=== PATIENT | female | born 1950 | race Caucasian/White ===

== ENCOUNTER → 2019-02-26 | Outpatient (CLI) | payer MEDICARE, SELFPAY | PROVIDERS: Family Provider Electrodiagnostic Medicine; PCP Electrodiagnostic Medicine; Visit Provider Electrodiagnostic Medicine | DX: M79.661 Pain in right lower leg (principal); M79.89 Other specified soft tissue disorders | CPT/HCPCS: 93971 ==

== ENCOUNTER 2019-04-06 07:08 | Outpatient (CLI) | payer MEDICARE, SELFPAY ==
--- NOTE | 2019-04-06 07:14 | USCV_ITS ---
Mary Taylor Age: 68 Gender: F : 1950 Exam Date: 04/06/2019 07:06 Ordering Phys: Vinicio Melissa DO Technologist: [place] [facility] [place]ication: CLAUDICATION, RIGHT LEG PAIN, BILATERAL EDEMA RIGHT LEFT Brachial 173.00 mmHg Brachial 176.00 mmHg Pressure (mmHg) Waveform Pressure (mmHg) Waveform 213.00 PULP AND PAPER TESTER 219.00 214.00 DPA 197.00 1.22 Ankle/Brachial Index 1.24 153.00 Pre-Exercise Toe Pressure 142.00 0.87 Pre-Exercise Toe/Brachial Index 0.81 FINDINGS Normal resting ABIs bilaterally Normal resting TBIs bilaterally CONCLUSIONS No significant arterial obstruction, based on the above findings Dr Zeynep Dickey MD FAC (Electronically Signed) Final Date: 09 April 2019 14:08 S
== END 2019-04-06 07:09 | disposition home or self-care (01) ==
LOC: US 07:12
PROVIDERS: Family Provider Electrodiagnostic Medicine; PCP Electrodiagnostic Medicine; Visit Provider Electrodiagnostic Medicine
DX: I73.9 Peripheral vascular disease, unspecified (principal); M79.604 Pain in right leg; R60.0 Localized edema
CPT/HCPCS: 93922

== ENCOUNTER → 2019-10-13 11:29 | Outpatient (BNVA) | payer MEDICARE, SELFPAY | PROVIDERS: Family Provider Electrodiagnostic Medicine; PCP Electrodiagnostic Medicine; Visit Provider Nurse Practitioner | DX: N93.9 Abnormal uterine and vaginal bleeding, unspecified (principal); B37.9 Candidiasis, unspecified; K64.9 Unspecified hemorrhoids; Z68.43 Body mass index [BMI] 50.0-59.9, adult; Z71.89 Other specified counseling | CPT/HCPCS: 81000 ==

== ENCOUNTER 2020-04-04 08:34 | Outpatient (CLI) | payer MEDICARE, SELFPAY ==
--- NOTE | 2020-04-04 08:39 | MM_ITS ---
WS: [id number] BILATERAL DIGITAL SCREENING MAMMOGRAPHY WITH CAD CLINICAL INFORMATION: SCREENING HISTORY: Screening mammogram. No current complaints. COMPARISON: TECHNIQUE: Bilateral CC and MLO views. FINDINGS: Scattered fibroglandular densities bilaterally. Punctate calcifications right breast. Vascular calcif ication. Clustered calcifications left mid breast appear new since 2018. Recommend spot compression m agnification views for further evaluation. Right breast is unremarkable. MM/[place] [id number] IMPRESSION: BI-RADS: 0-Incomplete: Need additional imaging evaluation FOLLOW UP: Need Additional Imaging Recommend spot compression magnification views of the clustered calcifications LEFT breast
== END 2020-04-04 08:35 | disposition home or self-care (01) ==
LOC: RADSHAW 08:36
PROVIDERS: PCP Nurse Practitioner Family; Visit Provider Nurse Practitioner Family
DX: Z12.31 Encounter for screening mammogram for malignant neoplasm of breast (principal); R92.1 Mammographic calcification found on diagnostic imaging of breast
CPT/HCPCS: 77067

== ENCOUNTER 2020-04-24 12:39 | Outpatient (CLI) | payer MEDICARE, SELFPAY ==
--- NOTE | 2020-04-24 13:03 | MM_ITS ---
WS: [id number] LEFT DIGITAL MAMMOGRAPHY WITH CAD CLINICAL INFORMATION: ABNORMAL MAMMO LT COMPARISON: April 04, 2020 TECHNIQUE: 4 views of the left breast were obtained. FINDINGS: Scattered fibroglandular densities of the left breast. Again seen are the clustered calcifications mi d left breast new since 2018. Spot magnification views demonstrate amorphous heterogeneous clustered calcifications. These are inde terminate and recommend stereotactic guided biopsy in further evaluation. MM/[place] [id number] IMPRESSION: BI-RADS: 4-Suspicious Finding-Biopsy Should Be Considered FOLLOW UP: Stereotactic Biopsy Recommended
== END 2020-04-24 12:40 | disposition home or self-care (01) ==
LOC: RADSHAW 12:40
PROVIDERS: PCP Nurse Practitioner Family; Visit Provider Nurse Practitioner Family
DX: R92.8 Other abnormal and inconclusive findings on diagnostic imaging of breast (principal); R92.1 Mammographic calcification found on diagnostic imaging of breast
CPT/HCPCS: 77065

== ENCOUNTER 2020-12-17 11:42 | Emergency (ER) | payer MEDICARE, SELFPAY ==
[2020-12-17 11:53] VITALS: BP 192/107; PULSE 76; RESP 20; TEMP 36.6; O2SAT 98; BMI 51.6
--- NOTE | 2020-12-17 11:54 | US_ITS ---
NOTE: Report was unsigned for reason: Order was edited. Original Signature date and time was: 12/17/20 @ 1318 WS: [id number] ULTRASOUND RENAL TECHNIQUE: Ultrasound examination of both kidneys. CLINICAL INFORMATION: eval for bladder cancer COMPARISON: None. FINDINGS: Technically difficult examination due to body habitus RIGHT: Right kidney is normal in size and appearance. Echogenicity: Normal. Cortical thickness: 1.9 cm; Normal. Hydronephrosis: None. Perinephric fluid: None. Right kidney measures: 9.7 cm x 6.5 cm x 5.6 cm. LEFT: Left kidney is normal in size and appearance. Echogenicity: Normal. Cortical thickness: 1.8 cm; Normal. Hydronephrosis: None. Perinephric fluid: None. Left kidney measures: 10.3 cm x 5.5 cm x 5.7 cm. Normal visualized aorta. Echogenic debris within the bladder likely blood products considering hematuria [facility] US/US renal BI with PV bladder IMPRESSION: Technically difficult examination. 1. No hydronephrosis in either kidney. 2. Echogenic debris within the bladder likely blood products. This can be foll owed up with cystoscopy to evaluate for neoplasia.
[2020-12-17 12:00] VITALS: BP 192/107; PULSE 76; RESP 20; TEMP 36.6; O2SAT 98
--- NOTE | 2020-12-17 12:30 | W.ED.GENADLT ---
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 Patient denies any passage of clots, any recent trauma or instrumentation, dysuria/polyuria. Denies any abdominal complaints, new vaginal discharge/bleeding, nausea/vomiting or any source of excessive bleeding, melena or hematochezia at this time. No complaints of chest pain shortness breath, palpitation or lightheadedness. Onset: earlier today Duration:twice Location:home Severity:mild Review of Systems Narrative: Constitutional: No fever, no chills. HEENT: No vision changes CV: No chest pain, no palpitations PULM: no cough, no dyspnea. GI: No abdominal pain, no N/V/D. : No dysuria, +hematuria x 2 MSKEL: No muscle pain SKIN: No new rashes, no lesions. NEURO: No headache, no focal weakness. HEME: No visible bruises PSYCH: Normal mood PFSH ED PFSH: Social History Smoking and tobacco status: never smoked Female Reproductive History: Date of last menstrual period: 05/22/20 Physical Exam Narrative: EXAM NARRATIVE: Head: Atraumatic Eyes: PERRL, conjunctiva without injection ENT: Mucous membrane moist NECK: Supple, ROM intact LUNGS: LCTAB, no crackles/rhonchi CV: RRR ABDOMEN: No focal TTP. NO guarding rebound, guarding, rigidity. No CVA tenderness to percussion. Neg [place]/Neg McBurney's point tenderness, no suprabupic tenderness to palpation. EXTREMITY: Normal ROM SKIN: No rash or erythema NEURO: Awake and alert, no focal motor deficits PSYCH: Normal mood and affect Course Vital Signs: Vital signs: Vital Signs Temperature 97.8 F 12/17/20 12:00 Pulse Rate 80 12/17/20 13:42 Respiratory Rate 20 H 12/17/20 12:00 Blood Pressure 155/79 12/17/20 13:42 Pulse Oximetry 96 12/17/20 13:42 MDM - General Adult MDM Narrative: Medical decision making narrative: 70-year-old female presents emergency room with 2 episodes of hematuria. No signs of trauma or injuries. Kidney appears to be stable today. Creatinine within normal limit. Patient on UA showed mild hematuria. Today, patient is noted to have an INR level greater than 5. Patient tells me that the next few days where she will undergo biopsy in [place] and will be off of the warfarin for the next 5 days. Patient has a primary care provider who can adjust therapeutic goal for INR. Patient declined to be seen by our PCP today. US findings of bladder lesions discussed extensively with patient. Patient received a copy of the US report with the documented findings. Patient is instructed to follow up urgently with a Urologist. I offered patient our urologist here, patient declined, stating that she wants to be seen by urologist at [facility]. Again i have reiterated the importance of following up with a specialist for further evaluation of these lesions. Disposition: Discharge. Patient counseled regarding diagnostic impression, treatment plan. Patient given ED strict return precautions to return for continuation, worsening, or development of new symptoms. Instructed to f/u w/ PCP regarding symptoms today. Patient verbalized understanding. Lab Data: Labs: Lab Results 12/17/20 12/17/20 12/17/20 12:17 12:32 12:32 WBC 6.0 10^3/uL 10^3/ uL (4.0-10.0) RBC 4.52 10^6/uL 10^6 /uL (4.1-5.3) Hgb 13.1 g/dL g/dL (11.5-15.3) Hct 41.6 % % (37.0-47.0) MCV 92.0 fl fl (81-99) MCH 29.0 pg pg (28.0-34.0) MCHC 31.5 g/dL g/dL (30.0-36.0) RDW 13.5 % % (12.1-15.1) Plt Count 190 10^3/cmm 10^3 /cmm (130-400) MPV 9.9 fL fL (7.4-10.4) Neut % (Auto) 66.6 % % Lymph % (Auto) 23.4 % % [place] % (Auto) 6.9 % % Eos % (Auto) 2.2 % % Baso % (Auto) 0.7 % % Neut # (Auto) 3.99 10^3/uL 10^3 /uL (1.8-7.7) Lymph # (Auto) 1.4 10^3/uL 10^3/ uL (0.8-4.8) [place] # (Auto) 0.4 10^3/uL 10^3/ uL (0.2-0.9) Eos # (Auto) 0.1 10^3/uL 10^3/ uL (0.0-0.8) Baso # (Auto) 0.0 10^3/uL 10^3/ uL (0.0-0.1) Nucleated RBC % (a uto) 0 % % Nucleated RBCs # 0.0 /100WBC /100W BC PT 52.80 SECONDS H S ECONDS (12.1-14.9) INR 5.81 H* (0.8-1.2) APTT 71.1 SECONDS H SE CONDS (23.9-36.7) Sodium Potassium Chloride Carbon Dioxide Anion Gap BUN Creatinine GFR Calculation Glucose Calculated Osmolal ity Calcium Urine Color Red (Yellow) Urine Appearance Cloudy (CLEAR) Urine pH 5 (5-7) Ur Specific Gravit y 1.005 (1.005-1.030) Urine Protein Neg (Negative) Urine Glucose (UA) 4+ H (Normal) Urine Ketones Negative (Negative) Urine Blood 3+ H (Negative) Urine Nitrate Negative (Negative) Urine Bilirubin Neg (Negative) Urine Urobilinogen Norm mg/dL mg/dL (Negative) Ur Leukocyte Hazel a[place] Negative (Negative) Urine RBC Too numerous to c nt /hpf H /hpf (0-2) Urine WBC Not Reportable Ur Squamous Epith Cells 15-25 /hpf H /hpf (0-5) Amorphous Sediment Not Reportable Urine Bacteria Trace /hpf /hpf (NONE) Urine Mucus 1+ /hpf /hpf 12/17/20 12:32 WBC RBC Hgb Hct MCV MCH MCHC RDW Plt Count MPV Neut % (Auto) Lymph % (Auto) [place] % (Auto) Eos % (Auto) Baso % (Auto) Neut # (Auto) Lymph # (Auto) [place] # (Auto) Eos # (Auto) Baso # (Auto) Nucleated RBC % (a uto) Nucleated RBCs # PT INR APTT Sodium 137 mmol/L mmol/L (136-145) Potassium 4.3 mmol/L mmol/L (3.5-5.1) Chloride 100 mmol/L mmol/L (98-107) Carbon Dioxide 25 mmol/L mmol/L (22-29) Anion Gap 16.3 (5-19) BUN 14 mg/dL mg/dL (8-23) Creatinine 1.1 mg/dL H mg/dL (0.5-0.9) GFR Calculation 49.1 mL/min L mL/ min (90-130) Glucose 176 mg/dL H mg/dL (65-115) Calculated Osmolal ity 289 mOsm/kg mOsm/ kg (285-295) Calcium 8.7 mg/dL mg/dL (8.5-10.5) Urine Color Urine Appearance Urine pH Ur Specific Gravit y Urine Protein Urine Glucose (UA) Urine Ketones Urine Blood Urine Nitrate Urine Bilirubin Urine Urobilinogen Ur Leukocyte Hazel ase Urine RBC Urine WBC Ur Squamous Epith Cells Amorphous Sediment Urine Bacteria Urine Mucus Imaging Data^: Other Imaging: Radiologist's impression: [employer] [id number] ReportSigned Patient: Dominic Taylor #: [id number]: 1950[facility]#:[id number]/Sex: 70 / FADM Date: 12/17/20Loc: ERRoom/Bed:Attending Dr: Ordering Provider/Ordering MD: Chon Lance MD Date of Service: 12/17/20 Procedure(s): US renal BI with PV bladder Accession Number(s): [id number] Report Number: [id number] WS: [id number] ULTRASOUND RENAL TECHNIQUE: Ultrasound examination of both kidneys. CLINICAL INFORMATION: eval for bladder cancer COMPARISON: None. FINDINGS: Technically difficult examination due to body habitus RIGHT: Right kidney is normal in size and appearance. Echogenicity: Normal. Cortical thickness: 1.9 cm; Normal. Hydronephrosis: None. Perinephric fluid: None. Right kidney measures: 9.7 cm x 6.5 cm x 5.6 cm. LEFT: Left kidney is normal in size and appearance. Echogenicity: Normal. Cortical thickness: 1.8 cm; Normal. Hydronephrosis: None. Perinephric fluid: None. Left kidney measures: 10.3 cm x 5.5 cm x 5.7 cm. Normal visualized aorta. Echogenic debris within the bladder likely blood products considering hematuria US/US renal BI with PV bladder IMPRESSION: Technically difficult examination. 1. No hydronephrosis in either kidney. 2. Echogenic debris within the bladder likely blood products. This can be followed up with cystoscopy to evaluate for neoplasia. Dictated By:Brandin Reynoso MDSigned By:Brandin Reynoso MDSigned Date/Time:12/17/201317DD/ 13 Discharge Plan Discharge Patient Disposition: Home Clinical Impression: Hematuria Condition: Stable Prescriptions: No Action Lantus U-100 Insulin 100 unit/mL solution 40 unit SUBCUT DAILY RF: 0 JARDIANNCE PO RF: 0 warfarin 5 mg tablet 5 mg PO DAILY RF: 0 levothyroxine 25 mcg capsule 25 mcg PO DAILY RF: 0 LASIX PO RF: 0 pantoprazole [Protonix] 40 mg tablet,delayed release (DR/EC) 40 mg PO BID RF: 0 nystatin-triamcinolone 100,000-0.1 unit/g-% cream 1 applic TOPICAL BID Qty: 60 RF: 0 hydrocortisone acetate 25 mg suppository 25 mg GA DAILY Qty: 12 RF: 0 fluconazole [Diflucan] 150 mg tablet 150 mg PO Q3D Qty: 3 RF: 0 Discharge Orders: Discharge ED (Routine); Ordered 12/17/20 Ordered By: Chon Lance Referrals: [place] RN, [employer] [Primary Care Provider] - Discharge Diet: Advance as tolerated Discharge Activity: Resume usual activity Patient Instructions: Hematuria - Female, Hematuria (ED) Activity Restrictions/Additional Instructions: Please follow up with your Urologist and your primary doctor. Here's the report below. [address] [id number] ReportSigned Patient: Dominic Taylor #: [id number]: 1950cct#:[id number]/Sex: 70 / FADM Date: 12/17/20Loc: ERRoom/Bed:Attending Dr: Ordering Provider/Ordering MD: Chon Lance MD Date of Service: 12/17/20 Procedure(s): US renal BI with PV bladder Accession Number(s): [id number] Report Number: [id number] WS: [id number] ULTRASOUND RENAL TECHNIQUE: Ultrasound examination of both kidneys. CLINICAL INFORMATION: eval for bladder cancer COMPARISON: None. FINDINGS: Technically difficult examination due to body habitus RIGHT: Right kidney is normal in size and appearance. Echogenicity: Normal. Cortical thickness: 1.9 cm; Normal. Hydronephrosis: None. Perinephric fluid: None. Right kidney measures: 9.7 cm x 6.5 cm x 5.6 cm. LEFT: Left kidney is normal in size and appearance. Echogenicity: Normal. Cortical thickness: 1.8 cm; Normal. Hydronephrosis: None. Perinephric fluid: None. Left kidney measures: 10.3 cm x 5.5 cm x 5.7 cm. Normal visualized aorta. Echogenic debris within the bladder likely blood products considering hematuria US/US renal BI with PV bladder IMPRESSION: Technically difficult examination. 1. No hydronephrosis in either kidney. 2. Echogenic debris within the bladder likely blood products. This can be followed up with cystoscopy to evaluate for neoplasia. Dictated By:Brandin Reynoso MDSigned By:Brandin Reynoso MDSigned Date/Time:12/17/20 1318DD/ 1314 Coding Level of Care Code ED [employer] for Bernadette Santiago
[2020-12-17 12:57] LABS: Specific Gravity, Urine 1.005 (1.005-1.030); Urine Appearance Cloudy (CLEAR); Urine Color Red (Yellow); pH Urine 5 (5-7)
[2020-12-17 12:58] LABS: Add Urine Microscopic? YES; Bacteria Urine TRACE /hpf; Bilirubin Urine Neg (Negative); Blood Urine 3+ (Negative); Glucose Urine UA 4+ (Normal); Ketones Urine Negative (Negative); Leukocyte Esterase Urine Negative (Negative); Nitrate Urine Negative (Negative); Protein Urine Neg (Negative); RBC Urine TOO NUMEROUS TO CNT /hpf (0-2); Squamous Epithelial Cell Urine 15-25 /hpf (0-5); Urobilinogen Urine Norm (Negative)
[2020-12-17 12:59] LABS: Basophils % 0.7 %; Eosinophils # 0.1 10^3/uL (0.0-0.8); Eosinophils % 2.2 %; Hematocrit 41.6 % (37.0-47.0); Hemoglobin 13.1 g/dL (11.5-15.3); Lymphocytes # 1.4 10^3/uL (0.8-4.8); Lymphocytes % 23.4 %; Mean Corpuscular HGB Conc 31.5 g/dL (30.0-36.0); Mean Platelet Volume 9.9 fL (7.4-10.4); Monocytes # 0.4 10^3/uL (0.2-0.9); Monocytes % 6.9 %; Neutrophils # 3.99 10^3/uL (1.8-7.7); Neutrophils % 66.6 %; Nucleated Red Blood Cells % 0 %; Platelet Count 190 10^3/cmm (130-400); Red Blood Count 4.52 10^6/uL (4.1-5.3); Red Cell Distribution Width 13.5 % (12.1-15.1)
[2020-12-17 12:59] LABS: Add Urine Culture? No; Mucus Urine 1+ /hpf
[2020-12-17 13:06] VITALS: BP 169/86; PULSE 65; O2SAT 96
[2020-12-17 13:13] LABS: Anion Gap 16.3 (5-19); Blood Urea Nitrogen 14 mg/dL (8-23); Calcium 8.7 mg/dL (8.5-10.5); Carbon Dioxide 25 mmol/L (22-29); Chloride 100 mmol/L (98-107); Glomerular Filtration Rate 49.1 mL/min (90-130); Glucose 176 mg/dL (65-115); Osmolality Calculated 289 mOsm/kg (285-295); Potassium 4.3 mmol/L (3.5-5.1); Sodium 137 mmol/L (136-145)
[2020-12-17 13:14] LABS: Partial Thromboplastin Time 71.1 SECONDS (23.9-36.7)
[2020-12-17 13:21] LABS: INR 5.81 (0.8-1.2)
[2020-12-17 13:42] VITALS: BP 155/79; PULSE 80; O2SAT 96
--- NOTE | 2020-12-19 09:41 | DCPLANNER ---
regional environmental manager had message to schedule a follow up appointment for patient with Dr. Gonzalez. regional environmental manager called the office of Dr. Gonzalez, spoke with Tia, gave clinic patients information. regional environmental manager was told that patients information would be printed and reviewed. Clinic will call patient with appointment information.
--- NOTE | 2021-01-08 09:55 | DCPLANNER ---
Patient had a follow up appointment scheduled for 12.24.[address] Gonzalez - patient did attend appointment.
== END 2020-12-17 13:40 | disposition home or self-care (01) ==
PROVIDERS: Emergency Provider Emergency Medicine; PCP Nurse Practitioner Family
DX: R31.9 Hematuria, unspecified (principal); Z79.4 Long term (current) use of insulin
CPT/HCPCS: 36415; 76770; 76857; 80048; 81001; 85025; 85610; 85730; 99282

== ENCOUNTER 2020-12-19 08:56 | Emergency (ER) | payer MEDICARE, SELFPAY ==
[2020-12-19 09:13] VITALS: BP 169/82; PULSE 70; RESP 18; TEMP 36.5; O2SAT 95; BMI 51.6
--- NOTE | 2020-12-19 09:36 | CT_ITS ---
WS: [id number] CT ABDOMEN PELVIS TECHNIQUE: Noncontrast CT of the abdomen and pelvis with coronal and sagittal reformatted images. CLINICAL INFORMATION: right flank pain and blood in urine COMPARISON: None. DLP: 1784.[address] scans at [facility] use at least one of these dose optimization techniques: automated e xposure control; mA and/or kV adjustment per patient size (includes targeted exams where dose is matc hed to clinical indication); or iterative reconstruction. FINDINGS: Increased attenuation within the right renal pelvis likely blood products. Mild right pelvocaliectasi s. Right ureter is decompressed. No obstructing right ureteral calculi. No obstructing left renal or ureteral calculi. No hydronephrosis in the left kidney. Tiny increased attenuation right upper pole r enal lesion measuring 6 mm likely hemorrhagic cyst. Large low-attenuation ovarian cystic appearing lesion measuring 8.3 x 7.9 CM. Differential considerat ions include incidental ovarian cyst versus mucinous or cystic neoplasm. Noncontrast liver is normal. Normal GE junction. Food products in the stomach. Fatty atrophy of the p ancreas. Induration in the central mesentery with a few prominent lymph nodes consistent with herlinda mesentery . Adrenal glands are normal. Noncontrast spleen is normal. Normal caliber abdominal aorta. Aortic calci fication. The vacuum disc phenomenon L4-L5 and L5-S1. Small subpleural nodule left lower lobe measuring [address]/CT kidney stone [id number] IMPRESSION: 1. Increased attenuation material within the right renal pelvis with mild righ t pelvocaliectasis likely due to blood products. Recommend further evaluation w ith ureteroscopy to evaluate for underlying neoplasm. 2. Large right adnexal low-attenuation cystic-appearing lesion measuring 8.3 x 7.9 cm nonspecific in a patient this age. This may represent ovarian cyst vers us cystic neoplasm. Recommend follow-up outpatient pelvic ultrasound and [employer] co nsultation for further evaluation. 3. Slight induration with a few prominent lymph nodes in the central mesentery consistent with Herlinda mesentery. This can be seen with inflammatory mesenter itis and has been associated with lymphoma. Recommend [address] abdomen pelvis follow-up. 4. Small subpleural nodule left lower lobe measuring 6 mm. Recommend [address] follow-up. Notified MARINE Foster at 12/19/2020 11:10 AM.
--- NOTE | 2020-12-19 09:37 | ED_ITS ---
HPI - Female Genitourinary General: Chief complaint: Urogenital-Female Stated complaint: Blood in Urine Time Seen by Provider: 12/19/20 09:20 History of Present Illness: HPI Narrative: Patient is a 70-year-old female comes to the ED with right flank pain and blood in urine. Blood in urine is visible and it started December 17. She was seen here in the ED on December 17 and diagnosed with hematuria and her INR was elevated and she was instructed to stop taking her warfarin for the next couple days. Early this morning patient started developing severe right flank pain. She rates the pain currently a 10 out of 10. She also reports having some nausea since the intense pain started. Patient has no history of kidney stones. She denies any improving or worsening factors and says the pain is just constant since it started this morning. Denies any dysuria, fever, chills, abdominal pain, bowel symptoms. Patient is currently on warfarin, but has not taken it since December 17 per ED discharge instructions. Associated symptoms: Reports nausea; Deny abdominal pain or headache(s) Date of Last Menstrual Period: 05/22/20 Review of Systems Const: Denies: fever(s), chills or fatigue Eyes: Denies: change in vision or eye discomfort ENMT: Denies: throat pain, odynophagia, nasal discharge or nasal congestion Card: Denies: chest pain, palpitations, edema, swelling of feet/ankles, dyspnea on exertion or orthopnea Resp: Denies: dyspnea, productive cough or non-productive cough GI: Reports: nausea; Denies: abdominal pain, vomiting, diarrhea, constipation or hematochezia : Reports: flank pain (right side) and hematuria; Denies: dysuria Musc: Denies: neck pain, back pain or extremity swelling Skin/Breast: Denies: rash or new lesions Neuro: Denies: headache(s), numbness in extremities or weakness in extremities PFS ED PFSH: Social History Smoking and tobacco status: never smoked Female Reproductive History: Date of last menstrual period: 05/22/20 Physical Exam Const: COMMON NORMALS: no acute distress, patient oriented x3 and alert GENERAL APPEARANCE: cooperative; not comfortable (Patient appears uncomfortable and is bracing right flank with hand) HENMT: COMMON NORMALS: normocephalic HEAD & SCALP: normocephalic MOUTH: Normal oral and palatal mucosa present THROAT: posterior oropharynx normal and uvula midline Eye: COMMON NORMALS: Equal, round and reactive pupils present PUPIL: Yes Equal, round and reactive pupils present Neck/C-Spine: COMMON NORMALS: supple GENERAL: Yes normal visual inspection Resp: COMMON NORMALS: normal respiratory effort, No retractions, No use of accessory muscles and clear to auscultation bilaterally AUSCULTATION: clear to auscultation bilaterally Cardio: COMMON NORMALS: regular rate, regular rhythm, S1 normal heart sound present, S2 normal heart sound present, No gallops present (Cardio), No clicks present (Cardio), No murmurs present (Cardio) and Peripheral pulses 2+ throughout RATE: regular rate RHYTHM: regular rhythm HEART SOUNDS: S1 normal heart sound present and S2 normal heart sound present PERIPHERAL PULSES: Peripheral pulses 2+ throughout GI: COMMON NORMALS: Normal to inspection, nondistended, normoactive bowel sounds present, Soft to palpation, non-tender and no masses PALPATION: Yes Soft to palpation : BLADDER/KIDNEY EXAM: Yes CVA tenderness Back/Pelvis: GENERAL BACK: Yes CVA tenderness CVA tenderness: right Extremity: COMMON NORMALS: normal to inspection Neuro: COMMON NORMALS: patient oriented x3 and moves all extremities SENSORIUM/ORIENTATION: Yes alert Skin: GENERAL SKIN EXAM: dry skin Course Reevaluation(s): Reevaluation #1: Patient's nausea and right flank pain completely resolved on its own while she was in the ED room. She then refused getting any IV morphine or Zofran or fluids since she was feeling a lot better. Time: 12:06 Vital Signs: Vital signs: Vital Signs Temperature 97.7 F 12/19/20 09:13 Pulse Rate 70 12/19/20 09:13 Respiratory Rate 18 12/19/20 09:13 Blood Pressure 169/82 12/19/20 09:13 Pulse Oximetry 95 12/19/20 09:13 MDM - Female MDM Narrative: Medical decision making narrative: Patient is a 70-year-old female is coming to the ED with right flank pain. She was seen here in the ED 2 days ago on December 17 for hematuria. Vitals are stable. Patient has right CVA tenderness but the rest of exam is benign. She appears nontoxic and in no acute distress. Creatinine was 1.4 which is slightly elevated from previous creatinine level. INR was 4.16 which is improvement from 5.8 2 days ago. rest of labs are unremarkable. CT abdomen pelvis showed . Increased attenuation material within the right renal pelvis with mild right pelvocaliectasis likely due to blood products. Recommend further evaluation with ureteroscopy to evaluate for underlying neoplasm. 2. Large right adnexal low-attenuation cystic-appearing lesion measuring 8.3 x 7.9 cm nonspecific in a patient this age. This may represent ovarian cyst versus cystic neoplasm. Recommend follow-up outpatient pelvic ultrasound and CUSTOMER RELATIONS COORDINATOR consultation for further evaluation. 3. Slight induration with a few prominent lymph nodes in the central mesentery consistent with Herlinda mesentery. This can be seen with inflammatory mesenteritis and has been associated with lymphoma. Recommend [address] abdomen pelvis follow-up. 4. Small subpleural nodule left lower lobe measuring 6 mm. Recommend [address] follow-up. I placed an order with case management for patient to be referred to Dr. Gonzalez for further investigation of right pelvocaliectasis. I also placed a order with case management for patient to be referred to women's health specialist for larger ovarian cyst And she was also set up for an outpatient pelvic ultrasound. Patient also would like to get established with a PCP, so I placed an order with case management for patient to be referred to a PCP. I also sent patient home with an outpatient lab order for patient to have her INR checked on December 23. Patient was also told to have follow-up CT chest x-ray in about 6-month along with a CT abdomen pelvis in 6 months as well. Patient's right flank pain resolved on its own while patient was here in the ED. She refused any IV fluids, nausea meds or pain meds while here in the ED. Patient diagnosed with renal colic on right side and right ovarian cyst. Patient was told to continue holding her warfarin until December 22 and then to have her INR redrawn on the to evaluate if she can start taking her warfarin again. Return to ED precautions given. Patient understood and agreed with plan. Lab Data: Attestation: I reviewed the patient's lab results. Labs: Lab Results 12/19/20 12/19/20 12/19/20 09:57 09:57 09:57 WBC 5.8 10^3/uL 10^3/ uL (4.0-10.0) RBC 4.45 10^6/uL 10^6 /uL (4.1-5.3) Hgb 12.8 g/dL g/dL (11.5-15.3) Hct 40.3 % % (37.0-47.0) MCV 90.6 fl fl (81-99) MCH 28.8 pg pg (28.0-34.0) MCHC 31.8 g/dL g/dL (30.0-36.0) RDW 13.3 % % (12.1-15.1) Plt Count 198 10^3/cmm 10^3 /cmm (130-400) MPV 10.1 fL fL (7.4-10.4) Neut % (Auto) 66.1 % % Lymph % (Auto) 22.8 % % Phillips % (Auto) 6.4 % % Eos % (Auto) 3.5 % % Baso % (Auto) 1.0 % % Neut # (Auto) 3.82 10^3/uL 10^3 /uL (1.8-7.7) Lymph # (Auto) 1.3 10^3/uL 10^3/ uL (0.8-4.8) Phillips # (Auto) 0.4 10^3/uL 10^3/ uL (0.2-0.9) Eos # (Auto) 0.2 10^3/uL 10^3/ uL (0.0-0.8) Baso # (Auto) 0.1 10^3/uL 10^3/ uL (0.0-0.1) Nucleated RBC % (a uto) 0 % % Nucleated RBCs # 0.0 /100WBC /100W BC PT 40.70 SECONDS H S ECONDS (12.1-14.9) INR 4.16 H (0.8-1.2) Sodium 138 mmol/L mmol/L (136-145) Potassium 3.7 mmol/L mmol/L (3.5-5.1) Chloride 101 mmol/L mmol/L (98-107) Carbon Dioxide 25 mmol/L mmol/L (22-29) Anion Gap 15.7 (5-19) BUN 16 mg/dL mg/dL (8-23) Creatinine 1.4 mg/dL H mg/dL (0.5-0.9) GFR Calculation 37.2 mL/min L mL/ min (90-130) Glucose 132 mg/dL H mg/dL (65-115) Calculated Osmolal ity 289 mOsm/kg mOsm/ kg (285-295) Calcium 8.5 mg/dL mg/dL (8.5-10.5) Total Bilirubin 0.5 mg/dL mg/dL (0.15-1.2) AST 13 U/L U/L (0-32) ALT 11 U/L U/L (0-33) Alkaline Phosphata se 72 IU/L IU/L (35-105) Total Protein 7.4 g/dL g/dL (6.6-8.7) Albumin 4.0 g/dL g/dL (3.5-5.2) Globulin 3.4 g/dL g/dL (1.3-4.6) Lipase 12 U/L L U/L (13-60) Imaging Data: CT Abd/Pel: Attestation: I personally reviewed and interpreted this imaging study as follows: Radiologist's impression: [address] [address] [address] Scan Report Signed Patient: Mary Taylor Unit #: [id number] : 1950 Age/Sex: 70 / F ADM Date: 12/19/20 Loc: ER Room/Bed: Attending Dr: Ordering Provider/Ordering MD: Nic Gaxiola Date of Service: 12/19/20 Procedure(s): CT kidney stone 59485 Accession Number(s): [id number] Report Number: [id number] WS: [id number] CT ABDOMEN PELVIS TECHNIQUE: Noncontrast CT of the abdomen and pelvis with coronal and sagittal reformatted images. CLINICAL INFORMATION: right flank pain and blood in urine COMPARISON: None. DLP: 1784.[address] scans at [facility] use at least one of these dose optimization techniques: automated exposure control; mA and/or kV adjustment per patient size (includes targeted exams where dose is matched to clinical indication); or iterative reconstruction. FINDINGS: Increased attenuation within the right renal pelvis likely blood products. Mild right pelvocaliectasis. Right ureter is decompressed. No obstructing right ureteral calculi. No obstructing left renal or ureteral calculi. No hydronephrosis in the left kidney. Tiny increased attenuation right upper pole renal lesion measuring 6 mm likely hemorrhagic cyst. Large low-attenuation ovarian cystic appearing lesion measuring 8.3 x 7.9 CM. Differential considerations include incidental ovarian cyst versus mucinous or cystic neoplasm. Noncontrast liver is normal. Normal GE junction. Food products in the stomach. Fatty atrophy of the pancreas. Induration in the central mesentery with a few prominent lymph nodes consistent with herlinda mesentery . Adrenal glands are normal. Noncontrast spleen is normal. Normal caliber abdominal aorta. Aortic calcification. The vacuum disc phenomenon L4-L5 and L5-S1. Small subpleural nodule left lower lobe measuring [address]/CT kidney stone [id number] IMPRESSION: 1. Increased attenuation material within the right renal pelvis with mild right pelvocaliectasis likely due to blood products. Recommend further evaluation with ureteroscopy to evaluate for underlying neoplasm. 2. Large right adnexal low-attenuation cystic-appearing lesion measuring 8.3 x 7.9 cm nonspecific in a patient this age. This may represent ovarian cyst versus cystic neoplasm. Recommend follow-up outpatient pelvic ultrasound and CUSTOMER RELATIONS COORDINATOR consultation for further evaluation. 3. Slight induration with a few prominent lymph nodes in the central mesentery consistent with Herlinda mesentery. This can be seen with inflammatory mesenteritis and has been associated with lymphoma. Recommend [address] abdomen pelvis follow-up. 4. Small subpleural nodule left lower lobe measuring 6 mm. Recommend [address] follow-up. Notified MARINE Foster at 12/19/2020 11:10 AM. Dictated By: Brandin Reynoso MD Signed By: Brandin Reynoso MD Signed Date/Time: 12/19/20 1110 DD/ 1047 Discharge Plan Discharge Patient Disposition: Home Clinical Impression: Renal colic on right side, Ovarian cyst, right Hematuria Qualifiers: Hematuria type: unspecified type Qualified Code(s): R31.9 - Hematuria, unspecified Condition: Stable Prescriptions: No Action Lantus U-100 Insulin 100 unit/mL solution 40 unit SUBCUT DAILY RF: 0 JARDIANNCE PO RF: 0 warfarin 5 mg tablet 5 mg PO DAILY RF: 0 levothyroxine 25 mcg capsule 25 mcg PO DAILY RF: 0 LASIX PO RF: 0 pantoprazole [Protonix] 40 mg tablet,delayed release (DR/EC) 40 mg PO BID RF: 0 nystatin-triamcinolone 100,000-0.1 unit/g-% cream 1 applic TOPICAL BID Qty: 60 RF: 0 hydrocortisone acetate 25 mg suppository 25 mg IA DAILY Qty: 12 RF: 0 fluconazole [Diflucan] 150 mg tablet 150 mg PO Q3D Qty: 3 RF: 0 Discharge Orders: Discharge ED (Routine); Ordered 12/19/20 Ordered By: Nic Gaxiola Referrals: Galo Hill RN, CHAIN TENDER [Primary Care Provider] - Discharge Diet: Regular Discharge Activity: Increase activity as tolerated Patient Instructions: Ovarian Cyst (ED), Renal Colic (ED), Hematuria (ED), Opioid Safety Activity Restrictions/Additional Instructions: Follow-up with medical provider as directed. Case management will be contacting you to let you know of your appointments coming up with Dr. Gonzalez the urologist, women's health doctor and local primary care physician. I have an order for you to get an outpatient ultrasound of the pelvis to analyze the ovarian cyst. Continue holding on taking your warfarin for another 3 days as instructed previously. Have INR rechecked on December 23 per outpatient order. Just come here to the hospital and when you check in show them the outpatient order form. Take medications as prescribed. Return to the ER or your medical provider if condition worsens. Please read and understand discharge instructions. Below are the CT abdomen findings. 1. Increased attenuation material within the right renal pelvis with mild right pelvocaliectasis likely due to blood products. Recommend further evaluation with ureteroscopy to evaluate for underlying neoplasm. 2. Large right adnexal low-attenuation cystic-appearing lesion measuring 8.3 x 7.9 cm nonspecific in a patient this age. This may represent ovarian cyst versus cystic neoplasm. Recommend follow-up outpatient pelvic ultrasound and CUSTOMER RELATIONS COORDINATOR consultation for further evaluation. 3. Slight induration with a few prominent lymph nodes in the central mesentery consistent with Herlinda mesentery. This can be seen with inflammatory mesenteritis and has been associated with lymphoma. Recommend [address] abdomen pelvis follow-up. 4. Small subpleural nodule left lower lobe measuring 6 mm. Recommend [address] follow-up. Thank you for choosing [facility] for your healthcare needs today. Please realize this is an emergency room and that we are providing you with a medical screening exam and this may not be complete and all inclusive of all the testing and or work up that you may need to determine your ailment or severity of your illness. It is very important that you follow up as instructed or that you return to the Emergency Department should you have concerns or if your condition changes or worsens in any way. Coding Level of Care Code ED Rock Splitter for Bernadette Fwbritta Exam Comprehensive
[2020-12-19 10:08] LABS: Basophils # 0.1 10^3/uL (0.0-0.1); Eosinophils # 0.2 10^3/uL (0.0-0.8); Eosinophils % 3.5 %; Hematocrit 40.3 % (37.0-47.0); Hemoglobin 12.8 g/dL (11.5-15.3); Lymphocytes # 1.3 10^3/uL (0.8-4.8); Lymphocytes % 22.8 %; Mean Corpuscular HGB Conc 31.8 g/dL (30.0-36.0); Mean Corpuscular Hemoglobin 28.8 pg (28.0-34.0); Mean Corpuscular Volume 90.6 fl (81-99); Mean Platelet Volume 10.1 fL (7.4-10.4); Monocytes # 0.4 10^3/uL (0.2-0.9); Monocytes % 6.4 %; Neutrophils # 3.82 10^3/uL (1.8-7.7); Neutrophils % 66.1 %; Nucleated Red Blood Cells % 0 %; Platelet Count 198 10^3/cmm (130-400); Red Blood Count 4.45 10^6/uL (4.1-5.3); Red Cell Distribution Width 13.3 % (12.1-15.1); White Blood Count 5.8 10^3/uL (4.0-10.0)
[2020-12-19 10:27] LABS: Alanine Aminotransferase 11 U/L (0-33); Alkaline Phosphatase 72 IU/L (35-105); Anion Gap 15.7 (5-19); Aspartate Amino Transferase 13 U/L (0-32); Blood Urea Nitrogen 16 mg/dL (8-23); Calcium 8.5 mg/dL (8.5-10.5); Carbon Dioxide 25 mmol/L (22-29); Chloride 101 mmol/L (98-107); Globulin 3.4 g/dL (1.3-4.6); Glomerular Filtration Rate 37.2 mL/min (90-130); Glucose 132 mg/dL (65-115); Lipase 12 U/L (13-60); Osmolality Calculated 289 mOsm/kg (285-295); Potassium 3.7 mmol/L (3.5-5.1); Sodium 138 mmol/L (136-145); Total Bilirubin 0.5 mg/dL (0.15-1.2); Total Protein 7.4 g/dL (6.6-8.7)
[2020-12-19 11:45] LABS: INR 4.16 (0.8-1.2)
--- NOTE | 2020-12-19 12:46 | PC.NURSE ---
This RN attempted to give the medication that is rodered, pt states her pain and nausea has significantly improved and she no longer wants any of the medciation. Provider advised
--- NOTE | 2020-12-24 10:09 | DCPLANNER ---
manager of engineering had message to schedule a follow up appointment for patient with Dr. Gonzalez, case liner called the office of Dr. Gonzalez. manager of engineering was told that patients information would be printed and reviewed. For further information for the referral to Dr. Gonzalez, please refer to visit on 12.17.20, case liner made a referral after that visit, and make note of appointment and if attended on that visit documentation.
--- NOTE | 2020-12-26 14:55 | DCPLANNER ---
product marketing manager had message to schedule a follow up appointment for patient with [facility]. product marketing manager called [facility], spoke with Thomas, gave clinic patients information. product marketing manager was told that patients information would be printed and reviewed. Clinic will call patient with appointment information. product marketing manager had message to schedule an outpatient US for patient. product marketing manager faxed signed order to centralize scheduling, who will call patient with appointment information. product marketing manager had message to speak with patient about getting established with a primary care physician. product marketing manager called patient and was unable to speak with patient at this time.
--- NOTE | 2020-12-31 15:55 | DCPLANNER ---
Patient has a follow up appointment scheduled for Tuesday, January 19, 2021 at 1;[address] Ovalle at [facility]. Clinic will call patient with appointment information.
--- NOTE | 2021-01-30 07:40 | DCPLANNER ---
Patient had a follow up appointment scheduled with [facility] - patient did attend. Patient had a follow up appointment for an ultrasound - patient did attend.
== END 2020-12-19 13:12 | disposition home or self-care (01) ==
PROVIDERS: Emergency Provider Physician Assistant; PCP Nurse Practitioner Family
DX: R31.9 Hematuria, unspecified (principal); N23 Unspecified renal colic; N83.201 Unspecified ovarian cyst, right side; Z79.01 Long term (current) use of anticoagulants; Z79.4 Long term (current) use of insulin
CPT/HCPCS: 74176; 80053; 83690; 85025; 85610; 87040; 99282; 99291

== ENCOUNTER 2020-12-23 11:01 | Outpatient (CLI) | payer MEDICARE, SELFPAY ==
[2020-12-23 12:08] LABS: INR 1.23 (0.8-1.2)
== END 2020-12-23 11:02 | disposition home or self-care (01) ==
LOC: LAB 11:10
PROVIDERS: PCP Nurse Practitioner Family; Visit Provider Physician Assistant
DX: R79.89 Other specified abnormal findings of blood chemistry (principal)
CPT/HCPCS: 36415; 85610

== ENCOUNTER → 2020-12-24 13:01 | Outpatient (BNVA) | payer MEDICARE, SELFPAY | PROVIDERS: PCP Nurse Practitioner Family; Visit Provider Urology | DX: R31.9 Hematuria, unspecified (principal) | CPT/HCPCS: 81003 ==

== ENCOUNTER → 2021-01-05 08:38 | Outpatient (BNVA) | payer MEDICARE, SELFPAY | PROVIDERS: PCP Nurse Practitioner Family; Visit Provider Urology | DX: R31.0 Gross hematuria (principal) | CPT/HCPCS: 81003; 87635 ==

== ENCOUNTER 2021-01-08 10:36 | Day surgery (SDC) | payer MEDICARE, SELFPAY ==
[2021-01-07 11:01] VITALS: BMI 51.6
[2021-01-08] VITALS (8 sets, daily range): BP systolic 145–198; BP diastolic 70–91; PULSE 69–93; RESP 12–20; TEMP 36.1–36.5; O2SAT 94–98
--- NOTE | 2021-01-08 | SCC_ITS ---
Procedure Done: 1. Cystoscopy, right retrograde ureteropyelogram, right flexible ureterorenoscopy, no stent 45.0 seconds of fluoroscopic guidance, for a cumulative dose of 28.89 mGy, was provided to Dr. Gonzalez by the radiology department. C-arm images of the abdomen were saved for the patient's permanent record. [facility]
--- NOTE | 2021-01-08 10:47 | SC_ITS ---
WS: [id number] C-arm fluoroscopy for right retrograde urogram, 01/08/2021 Clinical Data: Right ureteroscopy Comparison: CT abdomen and pelvis, 12/19/2020. Findings: Dr. Gonzalez performed a right retrograde urogram. SC/C-arm FL for Urology Impression: Right retrograde urogram.
[2021-01-08 11:21] LABS: Glucose Point of Care 82 mg/dL (70-110)
[2021-01-08] MEDS: sodium chloride 0.9% 1,000 ML 30 ML IV (11:22)
[2021-01-08] MEDS: dextrose 50% syringe 50 mL 25 ML IVP (11:36)
--- NOTE | 2021-01-08 11:45 | ANES.PREANE2 ---
Pre-Anesthetic Assessment Pre-Anesthetic Assessment: Height/Weight: Height 1.68 m Weight 145.15 kg Preop Diagnosis: Gross hematuria, right upper urinary tract Proposed Procedure: Operation Date: 01/08/21 12:00 Proposed Procedures p Cystoscopy 00812 70234 R31.0(Not Applicable) - Pablito Gonzalez MD s Retrograde Pyelogram(Not Applicable) - MD kolby Garza Ureteroscopy(Not Applicable) - Pablito Gonzalez MD Was Beta Tarun taken within 24 hours: N/A Was Clonidine taken within 24 hours: N/A Last intake: Intake Last Liquid Date 01/08/21 Last Liquid Time 06:30 Last Solid Date 01/07/21 Last Solid Time 19:00 Social: Social History: No tobacco Exam: Pre-Anes Outpt Exam: alert, oriented x 3, clear to auscultation bilaterally and regular rate & rhythm Airway: Submandibular: WNL Cervical ROM: WNL MP: 3 History/ROS: No significant complaints CV/HEM: Comments: DVTs on anticoagulation. GI: GI: GERD Metabolic: Metabolic: DM and Morbid obesity Anesthetic Plan: ASA status: 3 Anesthesia: Anesthesia Evaluation and General Risk of > 500 ml blood loss (7ml/kg in children): No Meds/Allergies Current Medications: Current Medications Generic Name Dose Route Start Last Admin Trade Name Freq PRN Reason Stop Dose Admin Sodium Chloride 1,000 mls @ 30 ml s/hr 01/08/21 11:00 01/08/21 11:22 Sodium Chloride 0.9% IV 01/09/21 10:59 30 mls/hr .Q24H CAPRI Administration PFSH Anesthesia PFSH: Medical History Diabetes Gross hematuria Right flank pain Family History Mother , at age 69 CAD (coronary artery disease) Father , at age 72 CAD (coronary artery disease) Social History Smoking and tobacco status: never smoked Alcohol intake: never Marital status: / Current occupational status: retired History of recent travel: No Female Reproductive History: Date of last menstrual period: 05/22/20 Data Anesthesia Other Labs: Laboratory Results - last 48 hr 01/08/21 11:18 POC Glucose 82 Cardiac Studies: No Data to Display
--- NOTE | 2021-01-08 12:03 | W.PM.OPSUD ---
Surgery/Procedure H&P Update DATE OF PROCEDURE: January 08, 2021 DATE H&P PERFORMED: 01/05/21 H&P UPDATE INFORMATION: I have reviewed H&P completed within last 30 days, I have examined patient prior to procedure, No changes to prior documentation and H&P is in [facility] [place] on date indicated CHANGES TO PREVIOUS DOCUMENTATION: Reviewed CT scan again preoperatively to confirm right renal pelvic abnormality as described in the note. Stopped her warfarin at office visit 01/05/2021. PREOP DIAGNOSIS: Gross hematuria, right upper urinary tract PLANNED PROCEDURE: Operation Date: 01/08/21 12:00 Proposed Procedures p Cystoscopy 71582 [id number] R31.0(Not Applicable) - Pablito Gonzalez MD s Retrograde Pyelogram(Not Applicable) - Pablito Gonzalez MD s Ureteroscopy(Not Applicable) - Pablito Gonzalez MD
[2021-01-08 12:06] LABS: Glucose Point of Care 111 mg/dL (70-110)
[2021-01-08] MEDS: levofloxacin-dextrose 5 % 500 MG/100 ML PREMIX 100 MG IV (12:09)
--- NOTE | 2021-01-08 12:49 | P.OP_ITS ---
Operative Report Date of procedure: January 08, 2021 Pre-op Diagnosis: Gross hematuria, right upper urinary tract Post-op diagnosis: same Procedure Done: 1. Cystoscopy, right retrograde ureteropyelogram, right flexible ureterorenoscopy, no stent Implants: None Specimens removed/disposition: None Pathology: none sent Surgeon: Lisa Anesthesia: General Urine output: not measured Complications: None Findings: Normal retrograde ureteropyelogram Evidence of recent hemorrhage in the collecting system with no evidence of mucosal abnormality other than some blood staining. Complete inspection of the calyceal system revealed no evidence of pathology. Condition: stable Disposition: PACU Brief History: Brittney is a very pleasant 70-year-old white female recently evaluated for gross hematuria with a CT scan showing what appeared to be some bladder masses ultimately proven on cystoscopy to be blood clot and what appeared to be fresh blood in the right collecting system. She is on chronic anticoagulants (warfarin). That has been held and she is admitted today for right ureteroscopy for further evaluation of her upper urinary tract. Procedure: After routine preoperative evaluation examination and obtaining of informed consent she was taken to the operating suite on 01/08/2021 where general anesthesia was administered without difficulty after appropriate timeout was performed, SCDs confirmed to be functioning, preoperative antibiotics administered, beta-jose protocol confirmed. Prepped and draped in usual sterile fashion in dorsolithotomy position paying careful attention to avoiding pressure points. 21 [place]ian cystoscope with 30 degree lens was introduced into the urethra meatus and advanced into the bladder under videoscopy. The bladder was systematically examined and found to be within normal limits. An 8 [place]ian cone-tip catheter was intubated to the right ureteral orifice for right retrograde ureteropyelogram: Normal course and caliber of the right ureter, no significant dilation of the pyelocalyceal system. No filling defects were identified. Normal study. A flexible tip guidewire was then advanced up the right ureter without difficulty. The distal ureter was dilated with a 15 Bel[place]ian 4 cm balloon with no waist. The flexible digital ureteroscope was advanced over the guidewire easily up the right ureter under videoscopy into the renal pelvis. The wire was removed for better visualization. Immediately was identified that there was some staining of the renal pelvis from recent hemorrhage but no active bleeding. Contrast that had been injected was still in the collecting system which allowed facilitation of inspection of all the calyces under fluoroscopic and ureteroscopic guidance. No pathology was identified other than the blood staining of the renal pelvis. The scope was slowly removed under direct vision and the ureter was carefully inspected and found to be normal. The distal ureter which was dilated appeared to be minimally traumatized and therefore was decided to not leave a stent indwelling. The cystoscope was then passed into the bladder and the right ureteral orifice was observed for several minutes with good efflux. She tolerated procedure well without complications and was awakened in the operating room and returned to the recovery room in stable condition PLANS: 1. Anticipate discharge from outpatient surgery 2. Follow-up in 6 months as long she is doing well. 3. May experience some right renal colic from swelling related to passage of the scope but I expect it would be short-term at worst.
[2021-01-08] MEDS: HYDROcodone-acetaminophen 5-325 mg Tablet 1 TAB PO (14:05)
[2021-01-08] MEDS: HYDROmorphone 1 mg/mL INJ 1 mL 0.5 MG IVP (14:06)
--- NOTE | 2021-01-08 15:34 | ANE.PACU2 ---
Inpatient post-anesthesia follow up: Airway intact: Yes Vital signs: Temperature 97 F Pulse Rate 69 Respiratory Rate 18 Blood Pressure 167/74 Pulse Oximetry 98 Oxygen Delivery Me thod Room Air Oxygen Flow Rate 2 Fraction of Inspir ed Oxygen Hydration adequate: Yes Nausea and vomiting: No Pain level: 2 Mental status: Baseline
== END 2021-01-08 14:45 | disposition home or self-care (01) ==
PROVIDERS: PCP Family Medicine; Visit Provider Urology
PROC: 0TJB8ZZ Inspection of Bladder, Via Natural or Artificial Opening Endoscopic (ICD-10-PCS; CPT 52000; principal; 2021-01-08 12:00)
PROC: (CPT 74420; 2021-01-08 12:00)
PROC: 0TJ98ZZ Inspection of Ureter, Via Natural or Artificial Opening Endoscopic (ICD-10-PCS; CPT 52351; 2021-01-08 12:00)
DX: R31.0 Gross hematuria (principal); N39.0 Urinary tract infection, site not specified; Z79.01 Long term (current) use of anticoagulants; E11.9 Type 2 diabetes mellitus without complications; Z79.4 Long term (current) use of insulin; Z88.6 Allergy status to analgesic agent; Z88.0 Allergy status to penicillin; Z88.2 Allergy status to sulfonamides; Z88.8 Allergy status to other drugs, medicaments and biological substances; Z83.3 Family history of diabetes mellitus
CPT/HCPCS: 52351; 36416; 76000; 82962; 96365; J1100; J1170; J1956; J2405; J2704; J3010; J3490; J7030

== ENCOUNTER → 2021-01-21 10:00 | Outpatient (BNVA) | payer MEDICARE, SELFPAY | PROVIDERS: PCP Family Medicine; Visit Provider Family Medicine | DX: Z79.01 Long term (current) use of anticoagulants (principal) | CPT/HCPCS: 85610 ==

== ENCOUNTER → 2021-01-28 15:05 | Outpatient (BNVA) | payer MEDICARE, SELFPAY | PROVIDERS: PCP Family Medicine; Visit Provider Obstetrics & Gynecology | DX: N83.8 Other noninflammatory disorders of ovary, fallopian tube and broad ligament (principal); N83.291 Other ovarian cyst, right side | CPT/HCPCS: 76830; 76856 ==

== ENCOUNTER → 2021-02-02 14:54 | Outpatient (BNVA) | payer MEDICARE, SELFPAY | PROVIDERS: PCP Family Medicine; Visit Provider Family Medicine | DX: Z79.01 Long term (current) use of anticoagulants (principal) | CPT/HCPCS: 85610 ==

== ENCOUNTER → 2021-02-04 13:14 | Outpatient (BNVA) | payer MEDICARE, SELFPAY | PROVIDERS: PCP Family Medicine; Visit Provider Nurse Practitioner Family | DX: Z20.822 Contact with and (suspected) exposure to COVID-19 (principal) | CPT/HCPCS: 87635 ==

== ENCOUNTER → 2021-02-16 14:55 | Outpatient (BNVA) | payer MEDICARE, SELFPAY | PROVIDERS: PCP Family Medicine; Visit Provider Family Medicine | DX: Z79.01 Long term (current) use of anticoagulants (principal) | CPT/HCPCS: 85610 ==

== ENCOUNTER → 2021-02-17 11:45 | Outpatient (BNVA) | payer MEDICARE, SELFPAY | PROVIDERS: PCP Family Medicine; Visit Provider Family Medicine | DX: N83.8 Other noninflammatory disorders of ovary, fallopian tube and broad ligament (principal); E03.9 Hypothyroidism, unspecified; E11.9 Type 2 diabetes mellitus without complications | CPT/HCPCS: 80053; 82652; 83036; 84443; 85025 ==

== ENCOUNTER → 2021-03-02 10:57 | Outpatient (BNVA) | payer MEDICARE, SELFPAY | PROVIDERS: PCP Family Medicine; Visit Provider Family Medicine | DX: I82.401 Acute embolism and thrombosis of unspecified deep veins of right lower extremity (principal) | CPT/HCPCS: 85610 ==

== ENCOUNTER → 2021-03-30 09:04 | Outpatient (BNVA) | payer MEDICARE, SELFPAY | PROVIDERS: PCP Family Medicine; Visit Provider Family Medicine | DX: Z79.01 Long term (current) use of anticoagulants (principal) | CPT/HCPCS: 85610 ==

== ENCOUNTER → 2021-04-06 08:57 | Outpatient (BNVA) | payer MEDICARE, SELFPAY | PROVIDERS: PCP Family Medicine; Visit Provider Family Medicine | DX: Z79.01 Long term (current) use of anticoagulants (principal) | CPT/HCPCS: 85610 ==

== ENCOUNTER → 2021-05-04 11:07 | Outpatient (BNVA) | payer MEDICARE, OTHER, SELFPAY | PROVIDERS: PCP Family Medicine; Visit Provider Family Medicine | DX: Z79.01 Long term (current) use of anticoagulants (principal) | CPT/HCPCS: 85610 ==

== ENCOUNTER → 2021-05-18 09:41 | Outpatient (BNVA) | payer MEDICARE, OTHER, SELFPAY | PROVIDERS: PCP Family Medicine; Visit Provider Family Medicine | DX: I82.401 Acute embolism and thrombosis of unspecified deep veins of right lower extremity (principal); Z79.01 Long term (current) use of anticoagulants | CPT/HCPCS: 85610 ==

== ENCOUNTER → 2021-05-19 10:12 | Outpatient (BNVA) | payer MEDICARE, OTHER, SELFPAY | PROVIDERS: PCP Family Medicine; Visit Provider Family Medicine | DX: E11.9 Type 2 diabetes mellitus without complications (principal); E55.9 Vitamin D deficiency, unspecified; Z79.4 Long term (current) use of insulin; E03.9 Hypothyroidism, unspecified; K21.9 Gastro-esophageal reflux disease without esophagitis; I82.401 Acute embolism and thrombosis of unspecified deep veins of right lower extremity | CPT/HCPCS: 80048; 83036; 84443 ==

== ENCOUNTER → 2021-06-15 16:23 | Outpatient (BNVA) | payer MEDICARE, OTHER, SELFPAY | PROVIDERS: PCP Family Medicine; Visit Provider Family Medicine | DX: Z79.01 Long term (current) use of anticoagulants (principal) | CPT/HCPCS: 85610 ==

== ENCOUNTER → 2021-07-09 10:28 | Outpatient (BNVA) | payer MEDICARE, OTHER, SELFPAY | PROVIDERS: PCP Family Medicine; Visit Provider Urology | DX: R31.0 Gross hematuria (principal) | CPT/HCPCS: 81003; 99213 ==

== ENCOUNTER → 2021-07-13 15:47 | Outpatient (BNVA) | payer MEDICARE, OTHER, SELFPAY | PROVIDERS: PCP Family Medicine; Visit Provider Family Medicine | DX: I82.401 Acute embolism and thrombosis of unspecified deep veins of right lower extremity (principal) | CPT/HCPCS: 85610 ==

== ENCOUNTER → 2021-08-12 10:36 | Outpatient (BNVA) | payer MEDICARE, OTHER, SELFPAY | PROVIDERS: PCP Family Medicine; Visit Provider Family Medicine | DX: Z79.01 Long term (current) use of anticoagulants (principal) | CPT/HCPCS: 85610 ==

== ENCOUNTER → 2021-09-14 16:54 | Outpatient (BNVA) | payer MEDICARE, OTHER, SELFPAY | PROVIDERS: PCP Family Medicine; Visit Provider Family Medicine | DX: Z79.01 Long term (current) use of anticoagulants (principal) | CPT/HCPCS: 85610 ==

== ENCOUNTER → 2021-11-18 13:44 | Outpatient (BNVA) | payer MEDICARE, OTHER, SELFPAY | PROVIDERS: PCP Family Medicine; Visit Provider Family Medicine | DX: E11.9 Type 2 diabetes mellitus without complications (principal); Z79.4 Long term (current) use of insulin; E03.9 Hypothyroidism, unspecified; I82.401 Acute embolism and thrombosis of unspecified deep veins of right lower extremity; K21.9 Gastro-esophageal reflux disease without esophagitis; Z79.01 Long term (current) use of anticoagulants; E55.9 Vitamin D deficiency, unspecified | CPT/HCPCS: 80048; 80061; 83036; 84439; 84443 ==

== ENCOUNTER → 2021-12-02 15:25 | Outpatient (BNVA) | payer MEDICARE, OTHER, SELFPAY | PROVIDERS: PCP Family Medicine; Visit Provider Family Medicine | DX: I82.531 Chronic embolism and thrombosis of right popliteal vein (principal); Z79.01 Long term (current) use of anticoagulants | CPT/HCPCS: 85610 ==

== ENCOUNTER → 2021-12-17 13:06 | Outpatient (BNVA) | payer MEDICARE, OTHER, SELFPAY | PROVIDERS: PCP Family Medicine; Visit Provider Family Medicine | DX: I82.531 Chronic embolism and thrombosis of right popliteal vein (principal) | CPT/HCPCS: 85610 ==

== ENCOUNTER → 2022-05-11 10:01 | Outpatient (BNVA) | payer MEDICARE, OTHER, SELFPAY | PROVIDERS: PCP Family Medicine; Visit Provider Family Medicine | DX: E03.9 Hypothyroidism, unspecified (principal); E11.59 Type 2 diabetes mellitus with other circulatory complications; E55.9 Vitamin D deficiency, unspecified; Z79.4 Long term (current) use of insulin; Z79.01 Long term (current) use of anticoagulants | CPT/HCPCS: 80053; 80061; 83036; 84439; 84443; 85025 ==

== ENCOUNTER → 2022-06-16 11:01 | Outpatient (BNVA) | payer MEDICARE, OTHER, SELFPAY | PROVIDERS: PCP Family Medicine; Visit Provider Family Medicine | DX: R53.83 Other fatigue (principal) | CPT/HCPCS: 85025 ==

== ENCOUNTER → 2022-11-02 08:17 | Outpatient (BNVA) | payer MEDICARE, OTHER, SELFPAY | PROVIDERS: PCP Family Medicine; Visit Provider Podiatrist Foot & Ankle Surgery | DX: E11.42 Type 2 diabetes mellitus with diabetic polyneuropathy (principal); L60.3 Nail dystrophy; M20.41 Other hammer toe(s) (acquired), right foot; M20.42 Other hammer toe(s) (acquired), left foot; Z79.4 Long term (current) use of insulin | CPT/HCPCS: 11721; 99203 ==

== ENCOUNTER → 2022-11-17 09:26 | Outpatient (BNVA) | payer MEDICARE, OTHER, SELFPAY | PROVIDERS: PCP Family Medicine; Visit Provider Family Medicine | DX: E11.59 Type 2 diabetes mellitus with other circulatory complications (principal); I82.401 Acute embolism and thrombosis of unspecified deep veins of right lower extremity; Z79.01 Long term (current) use of anticoagulants; Z79.4 Long term (current) use of insulin; E83.52 Hypercalcemia; E83.42 Hypomagnesemia | CPT/HCPCS: 80053; 80061; 82306; 83036; 83735; 84443; 85025 ==

== ENCOUNTER → 2022-11-25 14:25 | Outpatient (BNVA) | payer MEDICARE, OTHER, SELFPAY | PROVIDERS: PCP Family Medicine; Referring Provider Family Medicine; Visit Provider Surgery | DX: Z12.11 Encounter for screening for malignant neoplasm of colon (principal) | CPT/HCPCS: 99203 ==

== ENCOUNTER 2022-12-15 11:41 | Outpatient (CLI) | payer MEDICARE, OTHER, SELFPAY ==
--- NOTE | 2022-12-15 11:44 | MM_ITS ---
WS: [id number] BILATERAL 3D TOMOSYNTHESIS DIGITAL SCREENING MAMMOGRAPHY WITH CAD CLINICAL INFORMATION: Screening HISTORY: Screening mammogram. No current complaints. COMPARISON: 2021 TECHNIQUE: Bilateral CC and MLO views. FINDINGS: Scattered fibroglandular densities bilaterally. No suspicious focal mass, asymmetry, calcifications, or architectural distortion. No evidence of malignancy. Vascular calcifications. Punctate and lucent centered calcifications. Biopsy marker LEFT breast. IMPRESSION: MM/[place] [id number] BI-RADS: 2-Benign FOLLOW UP: 1 Year Follow-up Recommend return to annual screening mammography.
== END 2022-12-15 11:42 | disposition home or self-care (01) ==
LOC: RAD 11:41
PROVIDERS: PCP Family Medicine; Visit Provider Family Medicine
DX: Z12.31 Encounter for screening mammogram for malignant neoplasm of breast (principal)
CPT/HCPCS: 77063; 77067

== ENCOUNTER 2023-01-27 07:36 | Day surgery (SDC) | payer MEDICARE, OTHER, SELFPAY ==
--- NOTE | 2023-01-27 06:47 | W.PM.OPSFHP ---
Same Day Surgery H&P Indication for Procedure/HPI DATE OF PROCEDURE: January 27, 2023 CHIEF COMPLAINT/INDICATIONFOR SURGICAL PROCEDURE: need for screening colonoscopy PREOP DIAGNOSIS: need for screening colonoscopy PLANNED PROCEDURE: Operation Date: 01/27/23 08:40 Proposed Procedures p 23226 Colonoscopy G0121 Screen Colon A risk Z12.11(Not Applicable) - Jeremiah Ponce MD Medications/Allergies* Allergies/Adverse Reactions Allergy/AdvReac Type Severity Reaction Status Date / Time apixaban [From Eliquis] Allergy Severe hives Verified 01/25/23 13:45 aspirin Allergy Severe hives Verified 01/25/23 13:45 berberine Allergy Severe hives Verified 01/25/23 13:45 cephalexin Allergy Severe hives Verified 01/25/23 13:45 clindamycin Allergy Severe hives Verified 01/25/23 13:45 lisinopril Allergy Severe cough Verified 01/25/23 13:45 metformin Allergy Severe hives Verified 01/25/23 13:45 penicillin G Allergy Severe hives Verified 01/25/23 13:45 semaglutide [From Ozempic] Allergy Severe gas Verified 01/25/23 13:45 Tepevqn-HGY-JlM Reductase Allergy Severe hives Verified 01/25/23 13:45 Inhibitor Sulfa (Sulfonamide Allergy Severe hives Verified 01/25/23 13:45 Antibiotics) tetanus toxoid, adsorbed Allergy Severe hives Verified 01/25/23 13:45 Pertinent History/Comorbid Conditions* Medical History (Updated 12/16/22 @ 08:14 by Galo Pires DO) Diabetes Right flank pain Gross hematuria Family History (Updated 01/19/21 @ 13:03 by Chacha Winters RN) Father, at age 72 Mother, at age 69 Diabetes Mother Father Sister Clotting disorder Sister Heart disease Mother Father Sister Hyperlipidemia Mother Father Hypertension Father Uterine cancer Sister 30's Stroke Mother Sister Denies family history of Colon cancer Ovarian cancer Breast cancer Anesthesia complication Bleeding disorder Thyroid disease Social History Smoking and tobacco/nicotine status: never used tobacco/nicotine Alcohol intake: never Substance/Drug Use: never Current occupational status: retired Pertinent Exam Findings alert, oriented x 3, clear to auscultation bilaterally and regular rate & rhythm Recommendations Surgery/Procedure today Coding Level of Care Code Acute Code for Chg Fwd
[2023-01-27 07:53] VITALS: BP 129/77; PULSE 92; RESP 18; TEMP 36.1; O2SAT 98; BMI 51.6
[2023-01-27] MEDS: sodium chloride 0.9% 1,000 ML 30 ML IV (08:06)
--- NOTE | 2023-01-27 08:06 | ANES.PREANE2 ---
Pre-Anesthetic Assessment Height/Weight: Height 1.68 m Weight 145.15 kg Temp Pulse Resp BP Pulse Ox O2 Del Method 97.0 F L 92 18 129/77 98 Room Air 01/27/23 07:53 01/27/23 07:53 01/27/23 07:53 01/27/23 07:53 01/27/23 07:53 01/27/23 07:53 Preop Diagnosis: need for screening colonoscopy Operation Date: 01/27/23 08:40 Proposed Procedures p 44914 Colonoscopy G0121 Screen Colon A risk Z12.11(Not Applicable) - Jeremiah Ponce MD Was Beta Tarun taken within 24 hours: N/A Was Clonidine taken within 24 hours: N/A Last intake: Intake Last Liquid Date 01/26/23 Last Liquid Time 22:30 Last Solid Date 01/25/23 Last Solid Time 23:00 Social No alcohol and No tobacco Exam alert and oriented x 3 Airway Submandibular: within normal limits Cervical ROM: within normal limits Mallampati: Class II Dentition: false History/ROS No significant history except as noted Pulmonary None reported CV/HEM Murmur Chronic Renal Failure (Kidney disease stage III) Hepatic None reported GI Gastroesophageal Reflux Disease Metabolic Diabetes Mellitus, Hyperlipidemia and Thyroid Disease [facility] [place] None reported Neuropsych None reported Anesthetic Plan ASA status: 3 Anesthesia: MAC Risk of > 500 ml blood loss (7ml/kg in children): No Medications/Allergies Home Medications Medication Instructions Recorded Confirmed Last Taken Type blood sugar diagnostic (Accu-Chek #300 ea 11/22/22 01/25/23 01/25/23 Rx Guide test strips) empagliflozin 25 mg tablet 25 mg PO DAILY #90 tabs 11/22/22 01/25/23 01/26/23 Rx (Jardiance) ergocalciferol (vitamin D2) 1,250 1,250 mcg PO .weekly #12 caps 11/22/22 01/25/23 01/23/23 Rx mcg (50,000 unit) capsule insulin glargine 100 unit/mL (3 36 unit (0.36 mL) SUBCUT DAILY #45 11/22/22 01/25/23 01/26/23 10:00 Rx mL) subcutaneous pen (Lantus mL Solostar U-100 Insulin) levothyroxine 75 mcg tablet 75 mcg PO DAILY #90 tabs 11/22/22 01/25/23 01/27/23 03:30 Rx miscellaneous medical supply 100 ea miscellaneous DAILY #100 ea 11/22/22 01/25/23 01/25/23 Rx pantoprazole 40 mg tablet,delayed 40 mg PO DAILY #90 tabs 11/22/22 01/25/23 01/26/23 Rx release (Protonix) warfarin 5 mg tablet 5 mg PO DAILY #90 tabs 11/22/22 01/25/23 01/20/23 Rx Allergies Allergy/AdvReac Type Severity Reaction Status Date / Time apixaban [From Eliquis] Allergy Severe hives Verified 01/25/23 13:45 aspirin Allergy Severe hives Verified 01/25/23 13:45 berberine Allergy Severe hives Verified 01/25/23 13:45 cephalexin Allergy Severe hives Verified 01/25/23 13:45 clindamycin Allergy Severe hives Verified 01/25/23 13:45 lisinopril Allergy Severe cough Verified 01/25/23 13:45 metformin Allergy Severe hives Verified 01/25/23 13:45 penicillin G Allergy Severe hives Verified 01/25/23 13:45 semaglutide [From Ozempic] Allergy Severe gas Verified 01/25/23 13:45 Gvmqhtv-VYA-LtB Reductase Allergy Severe hives Verified 01/25/23 13:45 Inhibitor Sulfa (Sulfonamide Allergy Severe hives Verified 01/25/23 13:45 Antibiotics) tetanus toxoid, adsorbed Allergy Severe hives Verified 01/25/23 13:45 [facility] Anesthesia Medical History (Updated 12/16/22 @ 08:14 by Galo Pires DO) Diabetes Right flank pain Gross hematuria Family History Mother , at age 69 Stroke Heart disease Diabetes Hyperlipidemia Father , at age 72 Heart disease Diabetes Hyperlipidemia Hypertension Sister Clotting disorder Heart disease Diabetes Stroke Uterine cancer 30's Denies family history of Colon cancer Ovarian cancer Breast cancer Anesthesia complication Bleeding disorder Thyroid condition Social History Smoking and tobacco/nicotine status: never used tobacco/nicotine Alcohol intake: never Substance/Drug Use: never Current occupational status: retired Female Reproductive History Spontaneous abortions: No Data Anesthesia Cardiac Studies: No Data to Display
[2023-01-27 08:10] LABS: Glucose Point of Care 96 mg/dL (70-110)
[2023-01-27 09:05] VITALS: BP 117/62; PULSE 70; RESP 18; TEMP 36.6; O2SAT 96
[2023-01-27 09:20] VITALS: BP 113/43; PULSE 67; RESP 16; O2SAT 97
--- NOTE | 2023-01-27 09:36 | ANE.PACU2 ---
Inpatient post-anesthesia follow up: Airway intact: Yes Vital signs: Temperature 97.8 F Pulse Rate 67 Respiratory Rate 16 Blood Pressure 113/43 Pulse Oximetry 97 Oxygen Delivery Me thod Room Air Oxygen Flow Rate Fraction of Inspir ed Oxygen Hydration adequate: Yes Nausea and vomiting: No Pain level: 1 Mental status: Baseline
== END 2023-01-27 09:35 | disposition home or self-care (01) ==
PROVIDERS: PCP Family Medicine; Visit Provider Surgery
PROC: 0DJD8ZZ Inspection of Lower Intestinal Tract, Via Natural or Artificial Opening Endoscopic (ICD-10-PCS; CPT 45378; principal; 2023-01-27 08:40)
DX: Z12.11 Encounter for screening for malignant neoplasm of colon (principal); D12.8 Benign neoplasm of rectum; E11.22 Type 2 diabetes mellitus with diabetic chronic kidney disease; N18.30 Chronic kidney disease, stage 3 unspecified; E78.5 Hyperlipidemia, unspecified; Z79.4 Long term (current) use of insulin; Z79.01 Long term (current) use of anticoagulants
CPT/HCPCS: 36416; 45385; 82962; 88305; J2704; J7030

== ENCOUNTER → 2023-02-01 08:51 | Outpatient (BNVA) | payer MEDICARE, OTHER, SELFPAY | PROVIDERS: PCP Family Medicine; Visit Provider Podiatrist Foot & Ankle Surgery | DX: E11.42 Type 2 diabetes mellitus with diabetic polyneuropathy (principal); L60.3 Nail dystrophy; M20.41 Other hammer toe(s) (acquired), right foot; M20.42 Other hammer toe(s) (acquired), left foot; I73.9 Peripheral vascular disease, unspecified; Z79.4 Long term (current) use of insulin | CPT/HCPCS: 11721 ==

== ENCOUNTER → 2023-02-08 09:44 | Outpatient (BNVA) | payer MEDICARE, OTHER, SELFPAY | PROVIDERS: PCP Family Medicine; Visit Provider Surgery | DX: Z09 Encounter for follow-up examination after completed treatment for conditions other than malignant neoplasm (principal) | CPT/HCPCS: 99213 ==

== ENCOUNTER → 2023-02-23 15:26 | Outpatient (BNVA) | payer MEDICARE, OTHER, SELFPAY | PROVIDERS: PCP Family Medicine; Visit Provider Family Medicine | DX: I82.531 Chronic embolism and thrombosis of right popliteal vein (principal); Z79.01 Long term (current) use of anticoagulants | CPT/HCPCS: 85610 ==

== ENCOUNTER → 2023-05-10 09:10 | Outpatient (BNVA) | payer MEDICARE, OTHER, SELFPAY | PROVIDERS: PCP Family Medicine; Visit Provider Podiatrist Foot & Ankle Surgery | DX: E11.42 Type 2 diabetes mellitus with diabetic polyneuropathy (principal); L60.3 Nail dystrophy; M20.41 Other hammer toe(s) (acquired), right foot; M20.42 Other hammer toe(s) (acquired), left foot; I73.9 Peripheral vascular disease, unspecified; Z79.4 Long term (current) use of insulin | CPT/HCPCS: 11721 ==

== ENCOUNTER → 2023-05-19 09:12 | Outpatient (BNVA) | payer MEDICARE, OTHER, SELFPAY | PROVIDERS: PCP Family Medicine; Visit Provider Family Medicine | DX: E83.52 Hypercalcemia (principal); Z79.01 Long term (current) use of anticoagulants; I82.401 Acute embolism and thrombosis of unspecified deep veins of right lower extremity; E11.59 Type 2 diabetes mellitus with other circulatory complications; Z79.4 Long term (current) use of insulin; Z12.11 Encounter for screening for malignant neoplasm of colon; E11.9 Type 2 diabetes mellitus without complications; E55.9 Vitamin D deficiency, unspecified; E03.9 Hypothyroidism, unspecified; K21.9 Gastro-esophageal reflux disease without esophagitis; E83.42 Hypomagnesemia; E87.6 Hypokalemia | CPT/HCPCS: 80048; 80061; 82306; 83036; 83735; 84439; 84443; 85027 ==

== ENCOUNTER → 2023-08-23 10:30 | Outpatient (BNVA) | payer MEDICARE, OTHER, SELFPAY | PROVIDERS: PCP Family Medicine; Visit Provider Podiatrist Foot & Ankle Surgery | DX: E11.8 Type 2 diabetes mellitus with unspecified complications (principal); L60.3 Nail dystrophy; M20.41 Other hammer toe(s) (acquired), right foot; M20.42 Other hammer toe(s) (acquired), left foot; I73.9 Peripheral vascular disease, unspecified; Z79.4 Long term (current) use of insulin | CPT/HCPCS: 11721 ==

== ENCOUNTER → 2023-11-25 09:22 | Outpatient (BNVA) | payer MEDICARE, OTHER, SELFPAY | PROVIDERS: PCP Family Medicine; Visit Provider Family Medicine | DX: Z86.718 Personal history of other venous thrombosis and embolism (principal); Z79.4 Long term (current) use of insulin; E11.9 Type 2 diabetes mellitus without complications; E03.9 Hypothyroidism, unspecified; K21.9 Gastro-esophageal reflux disease without esophagitis | CPT/HCPCS: 80053; 82043; 83036; 85610 ==

== ENCOUNTER → 2023-11-29 13:00 | Outpatient (BNVA) | payer MEDICARE, OTHER, SELFPAY | PROVIDERS: PCP Family Medicine; Visit Provider Podiatrist Foot & Ankle Surgery | DX: L60.3 Nail dystrophy (principal); I73.9 Peripheral vascular disease, unspecified; Z86.718 Personal history of other venous thrombosis and embolism; Z79.01 Long term (current) use of anticoagulants; E03.9 Hypothyroidism, unspecified; E11.319 Type 2 diabetes mellitus with unspecified diabetic retinopathy without macular edema; Z79.4 Long term (current) use of insulin | CPT/HCPCS: 11721 ==

== ENCOUNTER 2023-12-08 14:44 | Outpatient (CLI) | payer MEDICARE, OTHER, SELFPAY ==
--- NOTE | 2023-12-08 15:30 | CTR_ITS ---
PROCEDURE INFORMATION: Exam: CT Chest Without Contrast; Diagnostic Exam date and time: 12/08/2023 2:53 PM Age: 73 years old Clinical indication: Condition or disease; Lung condition and disease; Pulmonary nodule, solitary; Prior surgery; Surgery date: 6+ months; Surgery type: Breast bx; Patient HX: Subpleural nodule lll; Additional info: Subpleural nodule lll 2020 CT 6mm TECHNIQUE: Imaging protocol: Diagnostic computed tomography of the chest without contrast. Radiation optimization: All CT scans at this facility use at least one of these dose optimization techniques: automated exposure control; mA and/or kV adjustment per patient size (includes targeted exams where dose is matched to clinical indication); or iterative reconstruction. COMPARISON: CT angio chest PE protcl [id number] 11/27/2018 2:56 PM RADIATION DOSE METRICS: Total DLP (mGy-cm): 746.38 FINDINGS: Lungs: There is a 6 mm diameter pleural-based nodule involving the posterior aspect of the left lower lobe. No other lung nodule or infiltrate noted. Pleural spaces: Unremarkable. No pneumothorax. No pleural effusion. Heart: Unremarkable. No cardiomegaly. No pericardial effusion. Coronary arteries: Coronary artery calcifications are noted. Lymph nodes: Unremarkable. No enlarged lymph nodes. Vasculature: Unremarkable. No aortic aneurysm. Bones/joints: Unremarkable. No acute fracture. Soft tissues: Unremarkable. CT/CT chest [facility] [id number] IMPRESSION: 1. Stable small left lung nodule 2. For patients at low risk (minimal or absent history of smoking and of other known risk factors), no routine follow-up is indicated. For patients at high risk (history of smoking or of other known risk factors), consider optional CT Chest at 12 months. (Reference: Chidi) REFERENCES: Chidi Davila et al. Guidelines for Management of Incidental Pulmonary Nodules Detected on CT Images: From the Fleischner Society 2017. Radiology. 2017;284(1):228-243.
== END 2023-12-08 14:45 | disposition home or self-care (01) ==
LOC: RAD 14:45
PROVIDERS: PCP Family Medicine; Visit Provider Family Medicine
DX: R91.1 Solitary pulmonary nodule (principal); E11.9 Type 2 diabetes mellitus without complications; Z79.4 Long term (current) use of insulin; E03.9 Hypothyroidism, unspecified; E55.9 Vitamin D deficiency, unspecified; K21.9 Gastro-esophageal reflux disease without esophagitis; Z86.718 Personal history of other venous thrombosis and embolism
CPT/HCPCS: 71250

== ENCOUNTER 2023-12-27 12:38 | Outpatient (CLI) | payer MEDICARE, OTHER, SELFPAY ==
--- NOTE | 2023-12-27 13:00 | MM_ITS ---
WS: [id number] BILATERAL 3D TOMOSYNTHESIS DIGITAL SCREENING MAMMOGRAPHY WITH CAD CLINICAL INFORMATION: screening HISTORY: Screening mammogram. No current complaints. COMPARISON: 2022 TECHNIQUE: Bilateral CC and MLO views. FINDINGS: Scattered fibroglandular densities bilaterally. No suspicious focal mass, asymmetry, calcifications, or architectural distortion. No evidence of malignancy. Vascular calcifications. Incidental punctate and lucent centered calcifications. MM/MM [facility] tomosynthesis [id number] IMPRESSION: DENSITY: There are scattered areas of fibroglandular density. BI-RADS: 2 - Benign. FOLLOW UP: 1 Year Follow-up Recommend return to annual screening mammography.
--- NOTE | 2023-12-27 14:00 | XR_ITS ---
WS: [id number] SCREENING DEXA SCAN [address] CLINICAL INFORMATION: postmenopausal screening for osteoporosis COMPARISON: None. FINDINGS: The L1-L4 bone mineral density measures 1.229 g/cm2. This corresponds to a T score score of 0.4 and Z score of 1.0. Left femoral neck bone mineral density measures 1.043 g/cm2. This corresponds to a T score of 0.3 and Z score of 1.1. Right femoral neck bone mineral density measures 1.044 g/cm2. This corresponds to a T score 0.3of and Z score of 1.1. Mean femoral neck bone mineral density measures 1.043 g/cm2. This corresponds to a T score of 0.3 and Z score of 1.1. XR/XR DEXA axial skeleton* [id number] IMPRESSION: Normal bone mineralization. Patient's FRAX calculated 10 year probability for major osteoporotic fracture i s 12.7% and osteoporotic hip fracture is 4.0%.
== END 2023-12-27 12:39 | disposition home or self-care (01) ==
LOC: RAD 12:38
PROVIDERS: PCP Family Medicine; Visit Provider Family Medicine
DX: Z12.31 Encounter for screening mammogram for malignant neoplasm of breast (principal); Z78.0 Asymptomatic menopausal state; Z13.820 Encounter for screening for osteoporosis; R92.323 Mammographic fibroglandular density, bilateral breasts; R92.1 Mammographic calcification found on diagnostic imaging of breast
CPT/HCPCS: 77063; 77067; 77080

== ENCOUNTER → 2024-03-06 11:58 | Outpatient (BNVA) | payer MEDICARE, OTHER, SELFPAY | PROVIDERS: PCP Family Medicine; Visit Provider Podiatrist Foot & Ankle Surgery | DX: E11.8 Type 2 diabetes mellitus with unspecified complications (principal); L60.3 Nail dystrophy; I73.9 Peripheral vascular disease, unspecified; Z86.718 Personal history of other venous thrombosis and embolism; Z79.01 Long term (current) use of anticoagulants; E03.9 Hypothyroidism, unspecified; E11.319 Type 2 diabetes mellitus with unspecified diabetic retinopathy without macular edema; Z79.4 Long term (current) use of insulin | CPT/HCPCS: 11721 ==

== ENCOUNTER → 2024-05-18 10:01 | Outpatient (BNVA) | payer MEDICARE, OTHER, SELFPAY | PROVIDERS: PCP Family Medicine; Visit Provider Family Medicine | DX: E11.9 Type 2 diabetes mellitus without complications (principal); Z79.4 Long term (current) use of insulin; E03.9 Hypothyroidism, unspecified; R01.1 Cardiac murmur, unspecified; Z86.718 Personal history of other venous thrombosis and embolism; Z79.01 Long term (current) use of anticoagulants; K21.9 Gastro-esophageal reflux disease without esophagitis | CPT/HCPCS: 80053; 80061; 83036; 84439; 84443; 85025 ==

== ENCOUNTER 2024-05-29 13:27 | Outpatient (RCR) | payer MEDICARE, OTHER, SELFPAY | END 2024-06-26 12:21 | disposition home or self-care (01) | LOC: SPT 13:27 | PROVIDERS: PCP Family Medicine; Visit Provider Family Medicine | DX: M54.50 Low back pain, unspecified (principal) | CPT/HCPCS: 97110; 97161 ==

== ENCOUNTER → 2024-06-04 09:11 | Outpatient (BNVA) | payer MEDICARE, OTHER, SELFPAY | PROVIDERS: PCP Family Medicine; Visit Provider Podiatrist Foot & Ankle Surgery | DX: I73.9 Peripheral vascular disease, unspecified (principal); L60.3 Nail dystrophy; Z86.718 Personal history of other venous thrombosis and embolism; Z79.01 Long term (current) use of anticoagulants; E03.9 Hypothyroidism, unspecified; E11.319 Type 2 diabetes mellitus with unspecified diabetic retinopathy without macular edema; Z79.4 Long term (current) use of insulin | CPT/HCPCS: 11721 ==

== ENCOUNTER 2024-06-18 08:42 | Emergency (ER) | payer MEDICARE, OTHER, SELFPAY ==
[2024-06-18 08:44] VITALS: BP 127/65; PULSE 105; RESP 24; TEMP 36.5; O2SAT 96
--- NOTE | 2024-06-18 08:44 | ECG_ITS ---
[facility] Test Date: 2024-06-18 Pat Name: Mary Taylor Department: Room: Gender: Female [employer]: : 1950 Requested By: Kodak Hernandez Order Number: [id number] Demetria MD: Zeynep Dickey M.D. Measurements Intervals [place] Rate: 103 P: 56 KS: 174 QRS: 28 QRSD: 90 T: 68 QT: 333 QTc: 436 Interpretive Statements SINUS TACHYCARDIA LOW QRS VOLTAGE IN PRECORDIAL LEADS [QRS DEFLECTION < 1.0 mV IN CHEST LEADS] ABNORMAL RHYTHM ECG Compared to ECG 11/27/2018 15:51:15 Sinus rhythm no longer present Electronically Signed On 06-18-2024 16:41:07 CDT by Zeynep Dickey M.D. [email or web address]
--- NOTE | 2024-06-18 08:50 | XR_ITS ---
WS: [id number] Exam: XR chest 1V portable [id number] Date/Time of Exam: 06/18/2024 8:54 AM Reason For Exam: dyspnea/cough Comparison 11/27/2018. Lungs are fully inflated and clear. No pleural effusions. Cardiomediastinal silhouette is unremarkable for technique. Bony structures are intact. XR/XR chest 1V portable [id number] IMPRESSION: 1. No acute cardiopulmonary finding.
--- NOTE | 2024-06-18 08:55 | ED_ITS ---
HPI - SOB/Dyspnea 2 General: Chief Complaint: Shortness of Breath/Dyspnea Stated Complaint: SOB Time Seen by Provider: 06/18/24 08:50 History of Present Illness: HPI Narrative: 73-year-old female presents emergency ro om with complaints of shortness of breath. Patient has a history of PEs. She states over the last several weeks she has been getting progressively more short of breath she says she does still take her Coumadin regularly which she stopped almost all of her other medications. She denies any chest pain. Denies fever sweats or chills has not had any productive cough. Associated symptoms: Deny abdominal pain, chest pain or fever(s) Related Data Home Medications ?Medication ?Instructions ?Recorded ?Confirmed diphenhydramine HCl 25 mg tablet 25 mg PO TID PRN shobha rgies 06/18/24 06/18/24 (Wal-Dryl Allergy) insulin glargine 100 unit/mL (3 43 unit SUBCUT DAILY 0 06/18/24 06/18/24 mL) subcutaneous pen (Lantus Solostar U-100 Insulin) Previous Rx's ?Medication ?Instructions ?Recorded blood sugar diagnostic (Accu-Chek #300 ea 05/19/23 Guide test strips) empagliflozin 25 mg tablet 25 mg PO DAILY #90 tabs (Jardiance) ergocalciferol (vitamin D2) 1,250 1,250 mcg PO .weekly #12 caps 11/25/23 mcg (50,000 unit) capsule levothyroxine 75 mcg tablet 75 mcg PO DAILY #90 tabs 0 11/25/23 pantoprazole 40 mg tablet,delayed 40 mg PO DAILY #90 t abs 11/25/23 release (Protonix) warfarin 5 mg tablet 5 mg PO DAILY #90 tabs 11/24 albuterol sulfate 2.5 mg/3 mL 2.5 mg (3 mL) inhalation Q4H PRN 06/18/24 (0.083 %) solution for nebulization shortness of breat h or wheezing #180 mL doxycycline hyclate 100 mg capsule 100 mg PO BID 10 da ys #20 caps 06/18/24 prednisone 20 mg tablet 20 mg PO TID #15 tabs Allergies Allergy/AdvReac Type Severity Reaction Status Date / Time apixaban (From Eliquis) Allergy Severe hives Verified 06/04/24 09:03 aspirin Allergy Severe hives Verified 06/04/24 09:03 berberine Allergy Severe hives Verified 06/04/24 09:03 cephalexin Allergy Severe hives Verified 06/04/24 09:03 clindamycin Allergy Severe hives Verified 06/04/24 09:03 lisinopril Allergy Severe cough Verified 06/04/24 09:03 metformin Allergy Severe hives Verified 06/04/24 09:03 penicillin G Allergy Severe hives Verified 06/04/24 09:03 semaglutide (From Ozempic) Allergy Severe gas Verified 06/04/24 09:03 Hhfauyc-EAU-PtW Reductase Allergy Severe hives Verified 06/04/24 09:03 Inhibitor Sulfa (Sulfonamide Allergy Severe hives Verified 06/04/24 09:03 Antibiotics) tetanus toxoid, adsorbed Allergy Severe hives Verified 06/04/24 09:03 Review of Systems 2 Const: Denies: fever(s) or chills Card: Denies: chest pain Resp: Denies: dyspnea GI: Denies: abdominal pain : Denies: dysuria, urinary frequency or urinary urgency Musc: Denies: neck pain or back pain Skin/Breast: Denies: rash PFSH ED 2 PFSH: Medical History Low back pain Heart murmur Statin intolerance Diabetic retinopathy associated with controlled type 2 diabetes mellitus has had laser treatments; Dr. Armstrong at 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; needs lifelong anticoagulation; weekly home INR done On warfarin therapy Hypovitaminosis D GERD without esophagitis Acquired hypothyroidism Surgical History Hx of right breast biopsy benign S/P cholecystectomy open Hx of hysterectomy Hyst with BSO--done b/c of ovarian cyst--benign H/O unilateral salpingectomy left tube removal for cyst in 30s Hx of colonoscopy with polypectomy 2015; 01.27.23 polyps; tubular adenoma--f/u 3 yrs Family History Mother , at age 69 Stroke Heart disease Diabetes Hyperlipidemia Father , at age 72 Heart disease Diabetes Hyperlipidemia Hypertension Sister Clotting disorder Heart disease Diabetes Stroke Uterine cancer 30's Denies family history of Colon cancer Ovarian cancer Breast cancer Anesthesia complication Thyroid disease Social History Smoking and tobacco/nicotine status: never used tobacco/nicotine Alcohol intake: never Substance/Drug Use: never Household members: none Marital status: / Marital status details: one step son in [place] Number of children: 0 Highest education level completed: Bachelor's Degree Current occupational status: retired 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 Female Reproductive History: Spontaneous abortions: No Physical Exam 2 Const: COMMON NORMALS: no acute distress GENERAL APPEARANCE: cooperative and comfortable ORIENTATION/CONSCIOUSNESS: Yes awake, Yes oriented to person, Yes oriented to place and Yes oriented to time HENMT: COMMON NORMALS: normocephalic, atraumatic and hearing grossly normal bilaterally HEAD & SCALP: normocephalic and atraumatic Resp: COMMON NORMALS: normal respiratory effort, No retractions, No use of accessory muscles and clear to auscultation bilaterally AUSCULTATION: clear to auscultation bilaterally Cardio: COMMON NORMALS: regular rate, regular rhythm and No murmurs present (Cardio) RATE: regular rate RHYTHM: regular rhythm GI: COMMON NORMALS: Soft to palpation and No hepatosplenomegaly present A USCULTATION: Yes normoactive bowel sounds PALPATION: Yes Soft to palpation, No Tenderness to palpation present (GI), No Guarding due to palpation present (GI) and Yes No hepatosplenomegaly present Extremity: COMMON NORMALS: normal to inspection, capillary refill normal, no clubbing, cyanosis or edema, no calf tenderness and no pedal edema Neuro: SENSORIUM/ORIENTATION: Yes oriented to person, Yes oriented to place and Yes oriented to time Skin: COMMON NORMALS: no rashes or lesions noted GENERAL SKIN EXAM: no rashes or lesions noted Course 2 Vital Signs: Vital signs: Vital Signs Temperature 97.7 F 06/18/24 08:44 Pulse Rate 91 06/18/24 12:05 Respiratory Rate 16 06/18/24 11:29 Blood Pressure 157/60 06/18/24 12:05 Pulse Oximetry 94 06/18/24 12:05 Oxygen Delivery Me thod Room Air 06/18/24 11:29 MDM - SOB/Dyspnea Medical Decision Making Patient states she has shortness of breath the last couple of months. CT does not show any PE. No pneumothorax no pneumonia. She does have some tree-in-bud changes reflective of chronic inflammation. Will put her on a course of doxycycline course steroids she did improvement with the steroids and nebulizers given in the emergency room. Reviewed findings with her discharge home with nebulizer follow-up with the primary care doctor in 7 to 10 days Medical Records I reviewed the patient's medical records. Lab Data I reviewed the patient's lab results. 06/18/24 09:00 06/18/24 09:00 Labs/Radiology: Radiology Impressions Chest X-Ray 06/18/24 08:50 IMPRESSION: 1. No acute cardiopulmonary finding. Chest CTA 06/18/24 09:09 IMPRESSION: 1. Bilateral tree-in-bud type opacities likely inflammatory in origin. 2. Subpleural nodule left lower lobe not significantly changed when compared to prior exam. Laboratory Results WBC 4.68 10^3/uL (3.29-11.43) 06/18/24 09:00 RBC 4.85 10^6/uL (3.85-5.65) 06/18/24 09:00 Hgb 13.70 g/dL (11.27-16.99) 06/18/24 09:00 Hct 42.0 % (36-47) 06/18/24 09:00 MCV 86.6 fl (85-98) 06/18/24 09:00 MCH 28.2 pg (27-33) 06/18/24 09:00 MCHC 32.6 g/dL (30-55) 06/18/24 09:00 RDW 14.0 % (12.1-15.1) 06/18/24 09:00 Plt Count 191 10^3/cmm (157-399) 06/18/24 09:00 MPV 9.2 fL (7.4-10.4) 06/18/24 09:00 Neut % (Auto) 57.1 % 06/18/24 09:00 Lymph % (Auto) 28.4 % 06/18/24 09:00 Davison % (Auto) 10.5 % 06/18/24 09:00 Eos % (Auto) 2.8 % 06/18/24 09:00 Baso % (Auto) 0.6 % 06/18/24 09:00 Neut # (Auto) 2.67 10^3/uL (1.8-7.7) 06/18/24 09:00 Lymph # (Auto) 1.3 10^3/uL (0.8-4.8) 06/18/24 09:00 Davison # (Auto) 0.5 10^3/uL (0.2-0.9) 06/18/24 09:00 Eos # (Auto) 0.1 10^3/uL (0.0-0.8) 06/18/24 09:00 Baso # (Auto) 0.0 10^3/uL (0.0-0.1) 06/18/24 09:00 Nucleated RBC % (auto) 0 % 06/18/24 09:00 Nucleated RBCs # 0.0 /100WBC 06/18/24 09:00 ESR 42 mm/hr (0-15) H 06/18/24 09:00 PT 36.60 SECONDS (12.1-14.9) H 06/18/24 09:00 INR 3.45 (0.8-1.2) H 06/18/24 09:00 Sodium 130 mmol/L (136-145) L 06/18/24 09:00 Potassium 3.7 mmol/L (3.5-5.1) 06/18/24 09:00 Chloride 93 mmol/L (98-107) L 06/18/24 09:00 Carbon Dioxide 21 mmol/L (22-29) L 06/18/24 09:00 Anion Gap 19.7 (5-19) H 06/18/24 09:00 BUN 18 mg/dL (8-23) 06/18/24 09:00 Creatinine 1.1 mg/dL (0.5-0.9) H 06/18/24 09:00 GFR Calculation Not Reportable 06/18/24 09:00 Glucose 161 mg/dL (65-115) H 06/18/24 09:00 Calculated Osmolality 275 mOsm/kg (285-295) L 06/18/24 09:00 Calcium 8.7 mg/dL (8.5-10.5) 06/18/24 09:00 Total Bilirubin 0.5 mg/dL (0.15-1.2) 06/18/24 09:00 AST 59 U/L (0-32) H 06/18/24 09:00 ALT 24 U/L (0-33) 06/18/24 09:00 Alkaline Phosphatase 60 U/L (35-105) 06/18/24 09:00 Troponin T Baseline 25 ng/L (0-10) H 06/18/24 09:00 Troponin T 120 Minute 21.67 ng/L (0-10) H 06/18/24 11:09 Delta Troponin T -3.33 ABS# (0-10) L 06/18/24 11:09 NT-Pro-B Natriuret Pep 349 pg/mL (0-125) H 06/18/24 09:00 Total Protein 7.6 g/dL (6.6-8.7) 06/18/24 09:00 Albumin 3.8 g/dL (3.5-5.2) 06/18/24 09:00 Globulin 3.8 g/dL (1.3-4.6) 06/18/24 09:00 Influenza A (PCR) Negative (Negative) 06/18/24 09:00 Influenza Type B (PCR) Negative (Negative) 06/18/24 09:00 RSV (PCR) Negative (Negative) 06/18/24 09:00 SARS-CoV-2 (PCR) Negative (Negative) 06/18/24 09:00 All radiology interpretation(s) finalized by discharge Discharge Plan Discharge Patient Disposition: Home Clinical Impression: Bronchitis Condition: Stable Prescriptions: New doxycycline hyclate 100 mg capsule 100 mg PO BID 10 Days Qty: 20 0RF prednisone 20 mg tablet 20 mg PO TID Qty: 15 0RF Rx Instructions: 1 p.o. 3 times daily x3 days, 1 p.o. twice daily x2 days, 1 p.o. daily x2 days albuterol sulfate 2.5 mg /3 mL (0.083 %) solution for nebulization 2.5 mg inhalation Q4H PRN (Reason: shortness of breath or wheezing) Qty: 180 0RF No Action (DME) Accu-Chek Guide test strips Strip See Rx Instructions .Route Qty: 300 3RF Rx Instructions: Test blood sugars up to 3x daily Jardiance 25 mg tablet 25 mg PO DAILY Qty: 90 3RF ergocalciferol (vitamin D2) 1,250 mcg (50,000 unit) capsule 1,250 mcg PO .weekly Qty: 12 3RF levothyroxine 75 mcg tablet 75 mcg PO DAILY Qty: 90 3RF pantoprazole [Protonix] 40 mg tablet,delayed release (DR/EC) 40 mg PO DAILY Qty: 90 3RF warfarin 5 mg tablet 5 mg PO DAILY Qty: 90 3RF Protocol: Dose Management Condition: Tuesday Dose/Route: 5 mg Instruction: 1 x 5 mg tablet Condition: Tuesday Dose/Route: 5 mg Instruction: 1 x 5 mg tablet Condition: Tuesday Dose/Route: 5 mg Instruction: 1 x 5 mg tablet Condition: Tuesday Dose/Route: 2.5 mg Instruction: 0.5 x 5 mg tablets Condition: Dose/Route: 5 mg Instruction: 1 x 5 mg tablet Condition: Tuesday Dose/Route: 5 mg Instruction: 1 x 5 mg tablet Condition: Tuesday Dose/Route: 5 mg Instruction: 1 x 5 mg tablet Protocol Text: Adjustment Start Date: Tuesday09/14/21 INR Value: 34.40 SECONDS INR Date: 09/14/21 Recheck Date: 10/14/21 insulin glargine [Lantus Solostar U-100 Insulin] 100 unit/mL (3 mL) insulin pen 43 unit SUBCUT DAILY diphenhydramine HCl [Wal-Dryl Allergy] 25 mg Tablet 25 mg PO TID PRN (Reason: allergies) Discharge Orders: Discharge ED (Routine); Ordered 06/18/24 Ordered By: Kodak Burciaga Other Ambulatory Orders: DME: Nebulizer with Neb Kit (Order) Location: None Selected Ordered By: Kodak Burciaga Referrals: Kathy Aldridge MD [Primary Care Provider] - Discharge Diet: Usual diet Discharge Activity: Increase activity as tolerated Patient Instructions: Opioid Safety, Pain Management Activity Restrictions/Additional Instructions: Thank you for choosing [facility] for your healthcare needs today. It is very important that you follow up as instructed or that you return to the Emergency Department should you have concerns or if your condition changes or worsens in any way. You are seen in the emergency room with complaint of shortness of breath. Cardiac enzymes and EKG did not show any acute changes chest x-ray did not show pneumonia CT did show some changes consistent with bronchiolitis. We did have some improvement with steroids and nebulizer was discharged home on a steroid taper doxycycline 100 twice daily for 10 days and albuterol nebulizers to use as needed follow-up with your doctor within the next 7 to 10 days Print Language: Gibraltarian Coding Level of Care Code ED Classroom Assistant for Bernadette Santiago
--- NOTE | 2024-06-18 09:09 | CTR_ITS ---
PROCEDURE INFORMATION: Exam: CTA Chest With Contrast Exam date and time: 06/18/2024 9:48 AM Age: 73 years old Clinical indication: Shortness of breath; Additional info: Dyspnea history of pes TECHNIQUE: Imaging protocol: Computed tomographic angiography of the chest with contrast. Exam focused on the arteries. 3D rendering (Not supervised by radiologist): MIP and/or 3D reconstructed images were created by the technologist. Radiation optimization: All CT scans at this facility use at least one of these dose optimization techniques: automated exposure control; mA and/or kV adjustment per patient size (includes targeted exams where dose is matched to clinical indication); or iterative reconstruction. Contrast material: OMNI 350; Contrast volume: 124 ml; Contrast route: INTRAVENOUS (IV); COMPARISON: CT angio chest PE protcl [id number] 11/27/2018 2:56 PM RADIATION DOSE METRICS: Total DLP (mGy-cm): 966.83 FINDINGS: Pulmonary arteries: Normal. No pulmonary emboli. Aorta: The thoracic aorta is normal in caliber without aneurysm or dissection. There is calcified plaque involving the aorta and coronary vessels. Lungs: Subtle tree-in-bud opacities are noted involving the lungs bilaterally including the upper lobes, lower lobes and right middle lobes. Findings are likely inflammatory. There is mild diffuse bronchial wall thickening. Subpleural nodule involving the left lower lobe measures 8-9 mm in size not significantly changed when compared to prior exam. No new discrete measurable nodules are identified. Pleural spaces: Unremarkable. No pneumothorax. No pleural effusion. Heart: Unremarkable. No cardiomegaly. No pericardial effusion. Lymph nodes: There are a few small mediastinal lymph nodes. No enlarged nodes are appreciated. Liver: There is a slightly nodular contour to the liver suspicious for cirrhosis. There is fatty infiltration of the liver. Gallbladder and biliary ducts: The gallbladder is not identified and presumably has been surgically removed. Recommend clinical correlation with surgical history. Kidneys: Small hyperdense lesion involving the superior pole of the right kidney is not significantly changed. Bones/joints: Unremarkable. No acute fracture. Soft tissues: Unremarkable. CT/CT angio chest PE protcl [id number] IMPRESSION: 1. Bilateral tree-in-bud type opacities likely inflammatory in origin. 2. Subpleural nodule left lower lobe not significantly changed when compared to prior exam.
[2024-06-18 09:10] LABS: Basophils % 0.6 %; Eosinophils # 0.1 10^3/uL (0.0-0.8); Eosinophils % 2.8 %; Lymphocytes # 1.3 10^3/uL (0.8-4.8); Lymphocytes % 28.4 %; Mean Corpuscular HGB Conc 32.6 g/dL (30-55); Mean Corpuscular Hemoglobin 28.2 pg (27-33); Mean Corpuscular Volume 86.6 fl (85-98); Mean Platelet Volume 9.2 fL (7.4-10.4); Monocytes # 0.5 10^3/uL (0.2-0.9); Monocytes % 10.5 %; Neutrophils # 2.67 10^3/uL (1.8-7.7); Neutrophils % 57.1 %; Nucleated Red Blood Cells % 0 %; Platelet Count 191 10^3/cmm (157-399); Red Blood Count 4.85 10^6/uL (3.85-5.65); White Blood Count 4.68 10^3/uL (3.29-11.43)
[2024-06-18 09:20] LABS: Erythrocyte Sedimentation Rate 42 mm/hr (0-15)
[2024-06-18 09:23] LABS: INR 3.45 (0.8-1.2)
[2024-06-18 09:29] LABS: Alanine Aminotransferase 24 U/L (0-33); Albumin Level 3.8 g/dL (3.5-5.2); Alkaline Phosphatase 60 U/L (35-105); Anion Gap 19.7 (5-19); Aspartate Amino Transferase 59 U/L (0-32); Blood Urea Nitrogen 18 mg/dL (8-23); Calcium 8.7 mg/dL (8.5-10.5); Carbon Dioxide 21 mmol/L (22-29); Chloride 93 mmol/L (98-107); Creatinine Clr Calc Pharmacy 66.9418; Globulin 3.8 g/dL (1.3-4.6); Glucose 161 mg/dL (65-115); Osmolality Calculated 275 mOsm/kg (285-295); Potassium 3.7 mmol/L (3.5-5.1); Sodium 130 mmol/L (136-145); Total Bilirubin 0.5 mg/dL (0.15-1.2); Total Protein 7.6 g/dL (6.6-8.7)
[2024-06-18 09:45] LABS: Influenza A NEGATIVE (Negative); Influenza B NEGATIVE (Negative); Respiratory Syncytial Virus Ce NEGATIVE (Negative); SARS-CoV-2 PCR NEGATIVE (Negative)
[2024-06-18 09:50] LABS: NT Pro B Type Natriuretic Pept 349 pg/mL (0-125)
[2024-06-18 09:54] LABS: Slide Review Slide Review Perform
[2024-06-18] MEDS: iohexol 350 mg/mL 500 mL Btl (per mL) IV (10:02)
[2024-06-18 10:30] VITALS: BP 144/49; PULSE 85; O2SAT 93
--- NOTE | 2024-06-18 10:54 | ECG_ITS ---
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 Measurements Intervals [place] Rate: 84 P: 53 WI: 168 QRS: 37 QRSD: 89 T: 71 QT: 358 QTc: 425 Interpretive Statements SINUS RHYTHM LOW QRS VOLTAGE IN PRECORDIAL LEADS [QRS DEFLECTION < 1.0 mV IN CHEST LEADS] Compared to ECG 06/18/2024 08:44:19 Sinus tachycardia no longer present Electronically Signed On 06-18-2024 16:40:08 CDT by Zeynep Dickey M.D. [email or web address]
[2024-06-18 11:00] VITALS: BP 148/53; PULSE 86; O2SAT 95
[2024-06-18] MEDS: methylPREDNISolone sod succ 125 mg/2 mL INJ IVP (11:07)
[2024-06-18 11:21] LABS: Troponin(5th) Baseline 25 ng/L (0-10)
[2024-06-18] MEDS: ipratropium-albuterol 3 mL Neb INHALATION (11:27)
[2024-06-18 11:29] VITALS: PULSE 82; RESP 16; O2SAT 94
[2024-06-18 11:33] LABS: Troponin 5 2HR 21.67 ng/L (0-10)
[2024-06-18 11:37] LABS: Troponin 5 2HR Delta -3.33 ABS# (0-10)
[2024-06-18 11:39] VITALS: PULSE 75
[2024-06-18 12:05] VITALS: BP 157/60; PULSE 91; O2SAT 94
== END 2024-06-18 12:06 | disposition home or self-care (01) ==
PROVIDERS: Emergency Provider Family Medicine; PCP Family Medicine
DX: J40 Bronchitis, not specified as acute or chronic (principal); Z11.52 Encounter for screening for COVID-19; Z79.01 Long term (current) use of anticoagulants; Z79.4 Long term (current) use of insulin; E11.319 Type 2 diabetes mellitus with unspecified diabetic retinopathy without macular edema
CPT/HCPCS: 36415; 71045; 71275; 80053; 83880; 84484; 85025; 85610; 85651; 87637; 93005; 94640; 96374; 99285; J2919; J9999

== ENCOUNTER 2024-06-28 10:58 | Inpatient (IN) | payer MEDICARE, OTHER, SELFPAY ==
[2024-06-28] VITALS (15 sets, daily range): BP systolic 78–178; BP diastolic 59–91; PULSE 73–122; RESP 16–18; TEMP 36.4–36.8; O2SAT 95–99; BMI 51.1; BMI 49.2
--- NOTE | 2024-06-28 11:03 | ECG_ITS ---
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 Measurements Intervals [place] Rate: 84 P: -3 NC: 155 QRS: 23 QRSD: 91 T: 21 QT: 362 QTc: 429 Interpretive Statements SINUS RHYTHM Compared to ECG 06/18/2024 10:56:11 No significant changes Electronically Signed On 07-02-2024 09:28:51 CDT by Eze Puri M.D. [email or web address]
--- NOTE | 2024-06-28 11:03 | XR_ITS ---
WS: [id number] Portable AP upright chest, 06/28/2024 Clinical Data: dyspnea/cough Comparison: Portable chest, 06/18/2024 Findings: No nodules, masses or effusions are seen. The heart is normal. The pulmonary vascularity is not increased. No pneumonia or pneumothorax is seen. The aortic arch shows mild tortuosity. XR/XR chest 1V portable [id number] Impression: Atherosclerosis.
[2024-06-28 11:23] LABS: Basophils % 0.2 %; Eosinophils # 0.1 10^3/uL (0.0-0.8); Eosinophils % 1.2 %; Hematocrit 43.6 % (36-47); Lymphocytes # 1.2 10^3/uL (0.8-4.8); Lymphocytes % 10.9 %; Mean Corpuscular HGB Conc 31.2 g/dL (30-55); Mean Corpuscular Hemoglobin 28.6 pg (27-33); Mean Corpuscular Volume 91.8 fl (85-98); Mean Platelet Volume 9.8 fL (7.4-10.4); Monocytes # 0.9 10^3/uL (0.2-0.9); Monocytes % 7.6 %; Nucleated Red Blood Cells % 0 %; Platelet Count 301 10^3/cmm (157-399); Red Blood Count 4.75 10^6/uL (3.85-5.65)
--- NOTE | 2024-06-28 11:38 | ED_ITS ---
HPI - Weakness 2 General: Chief complaint: Weakness Stated complaint: weakness Time Seen by Provider: 06/28/24 11:02 History of Present Illness: 73-year-old female presents emergency ro om complaining of feeling weak and tired. She states whenever she gets up and tries to get around she gets very weak she feels like she can barely stand. She been seen on June 18 at that time she appeared to have a bronchitis she was given antibiotics and steroids. Patient is on Coumadin for history of DVT. She did pause her Coumadin for a time during her course of steroids and antibiotics because her INR had gone up considerably. Associated symptoms: Denies chest pain, chills, dysuria or fever(s) Review of Systems 2 Const: Denies: fever(s) or chills Card: Denies: chest pain Resp: Denies: dyspnea GI: Denies: abdominal pain : Denies: dysuria, urinary frequency or urinary urgency Musc: Denies: neck pain or back pain Skin/Breast: Denies: rash PFSH ED 2 PFSH: Medical History Low back pain Heart murmur Statin intolerance Diabetic retinopathy associated with controlled type 2 diabetes mellitus has had laser treatments; Dr. 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; needs lifelong anticoagulation; weekly home INR done On warfarin therapy Hypovitaminosis D GERD without esophagitis Acquired hypothyroidism Surgical History Hx of right breast biopsy benign S/P cholecystectomy open Hx of hysterectomy Hyst with BSO--done b/c of ovarian cyst--benign H/O unilateral salpingectomy left tube removal for cyst in 30s Hx of colonoscopy with polypectomy 2015; 01.27.23 polyps; tubular adenoma--f/u 3 yrs Family History Mother , at age 69 Stroke Heart disease Diabetes Hyperlipidemia Father , at age 72 Heart disease Diabetes Hyperlipidemia Hypertension Sister Clotting disorder Heart disease Diabetes Stroke Uterine cancer 30's Denies family history of Colon cancer Ovarian cancer Breast cancer Anesthesia complication Thyroid disease Social History Smoking and tobacco/nicotine status: never used tobacco/nicotine Alcohol intake: never Substance/Drug Use: never Household members: none Marital status: / Marital status details: one step son in [place] Number of children: 0 Highest education level completed: Bachelor's Degree Current occupational status: retired 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 Female Reproductive History: Spontaneous abortions: No Physical Exam 2 Const: GENERAL APPEARANCE: cooperative ORIENTATION/CONSCIOUSNESS: Yes awake, Yes oriented to person, Yes oriented to place and Yes oriented to time HENMT: COMMON NORMALS: normocephalic, atraumatic and hearing grossly normal bilaterally HEAD & SCALP: normocephalic and atraumatic Resp: COMMON NORMALS: normal respiratory effort, No retractions, No use of accessory muscles and clear to auscultation bilaterally AUSCULTATION: clear to auscultation bilaterally Cardio: COMMON NORMALS: regular rate, regular rhythm and No murmurs present (Cardio) RATE: regular rate RHYTHM: regular rhythm GI: COMMON NORMALS: Soft to palpation and No hepatosplenomegaly present A USCULTATION: Yes normoactive bowel sounds PALPATION: Yes Soft to palpation, No Tenderness to palpation present (GI), No Guarding due to palpation present (GI) and Yes No hepatosplenomegaly present Extremity: COMMON NORMALS: normal to inspection, capillary refill normal, no clubbing, cyanosis or edema, no calf tenderness and no pedal edema Neuro: SENSORIUM/ORIENTATION: Yes oriented to person, Yes oriented to place and Yes oriented to time Skin: COMMON NORMALS: no rashes or lesions noted GENERAL SKIN EXAM: no rashes or lesions noted Course 2 Vital Signs: Vital signs: Vital Signs Temperature 98.0 F 06/29/24 08:00 Pulse Rate 74 06/29/24 08:00 Respiratory Rate 17 06/29/24 08:00 Blood Pressure 126/66 06/29/24 08:00 Pulse Oximetry 95 06/29/24 08:00 Oxygen Delivery Me thod Room Air 06/29/24 08:00 MDM - Weakness Medical Decision Making Patient given IV fluids finally started for her blood pressure drops. She does have a bladder infection as well. She has no fever vital signs have otherwise been stable and lying down her pressure is normal her lactate is 2 her INR is 1.84. Will admit for her orthostasis she has been started with cultures and is started on IV antibiotics. Medical Records I reviewed the patient's medical records. Lab Data I reviewed the patient's lab results. 06/29/24 04:06 06/29/24 04:06 Radiology Impressions Chest X-Ray 06/28/24 11:03 Impression: Atherosclerosis. Chest CTA 06/28/24 22:07 IMPRESSION: No pulmonary embolus. Head CT 06/28/24 22:07 IMPRESSION: No significant findings Laboratory Results WBC 11.40 10^3/uL (3.29-11.43) 06/28/24 11:13 RBC 4.75 10^6/uL (3.85-5.65) 06/28/24 11:13 Hgb 13.60 g/dL (11.27-16.99) 06/28/24 11:13 Hct 43.6 % (36-47) 06/28/24 11:13 MCV 91.8 fl (85-98) 06/28/24 11:13 MCH 28.6 pg (27-33) 06/28/24 11:13 MCHC 31.2 g/dL (30-55) 06/28/24 11:13 RDW 15.0 % (12.1-15.1) 06/28/24 11:13 Plt Count 301 10^3/cmm (157-399) 06/28/24 11:13 MPV 9.8 fL (7.4-10.4) 06/28/24 11:13 Neut % (Auto) 79.0 % 06/28/24 11:13 Lymph % (Auto) 10.9 % 06/28/24 11:13 Lea % (Auto) 7.6 % 06/28/24 11:13 Eos % (Auto) 1.2 % 06/28/24 11:13 Baso % (Auto) 0.2 % 06/28/24 11:13 Neut # (Auto) 9.00 10^3/uL (1.8-7.7) H 06/28/24 11:13 Lymph # (Auto) 1.2 10^3/uL (0.8-4.8) 06/28/24 11:13 Lea # (Auto) 0.9 10^3/uL (0.2-0.9) 06/28/24 11:13 Eos # (Auto) 0.1 10^3/uL (0.0-0.8) 06/28/24 11:13 Baso # (Auto) 0.0 10^3/uL (0.0-0.1) 06/28/24 11:13 Nucleated RBC % (auto) 0 % 06/28/24 11:13 Nucleated RBCs # 0.0 /100WBC 06/28/24 11:13 PT 23.30 SECONDS (12.1-14.9) H 06/28/24 11:13 INR 1.94 (0.8-1.2) H 06/28/24 11:13 Specimen Type Arterial 06/28/24 12:09 Sample Site Brachial, left 06/28/24 12:09 ABG pH 7.48 (7.35-7.45) H 06/28/24 12:09 ABG pCO2 28.9 mmHg (35-45) L 06/28/24 12:09 ABG pO2 81.9 mmHg (80.0-100.0) 06/28/24 12:09 ABG PO2/FiO2 Ratio 390 06/28/24 12:09 ABG HCO3 21.5 mmol/L (22-26) L 06/28/24 12:09 ABG O2 Saturation 97.4 06/28/24 12:09 ABG Base Excess -1.0 mmol/L (-2.0-2.0) 06/28/24 12:09 Rebel Test N/a 06/28/24 12:09 A-a O2 Gradient 3.9 mmHg (5-10) L 06/28/24 12:09 Hematocrit 40.6 % (37-47) 06/28/24 12:09 Hgb O2 Saturation 95.1 % (95-100) 06/28/24 12:09 Carboxyhemoglobin 1.3 %THgb (0.4-20.1) 06/28/24 12:09 Methemoglobin 1.0 % (0.4-1.5) 06/28/24 12:09 Total Hemoglobin 13.2 g/dL (12-16) 06/28/24 12:09 Sodium 136.0 mmol/L (131-143) 06/28/24 12:09 Potassium 3.1 mmol/L (3.5-5.0) L 06/28/24 12:09 Glucose 121.0 mg/dL (70-115) H 06/28/24 12:09 Ionized Calcium 1.1 mmol/L (1.1-1.4) 06/28/24 12:09 O2 Delivery Device Room air 06/28/24 12:09 FiO2 21.0 % 06/28/24 12:09 Plaster Whittler ID Amh 06/28/24 12:09 Sodium 139 mmol/L (136-145) 06/28/24 11:13 Potassium 3.3 mmol/L (3.5-5.1) L 06/28/24 11:13 Chloride 100 mmol/L (98-107) 06/28/24 11:13 Carbon Dioxide 24 mmol/L (22-29) 06/28/24 11:13 Anion Gap 18.3 (5-19) 06/28/24 11:13 BUN 16 mg/dL (8-23) 06/28/24 11:13 Creatinine 1.0 mg/dL (0.5-0.9) H 06/28/24 11:13 GFR Calculation Not Reportable 06/28/24 11:13 Glucose 123 mg/dL (65-115) H 06/28/24 11:13 POC Glucose 98 mg/dL (70-110) 06/28/24 20:10 Calculated Osmolality 291 mOsm/kg (285-295) 06/28/24 11:13 Lactic Acid 2.0 mmol/L (0.5-2.2) 06/28/24 15:28 Calcium 8.6 mg/dL (8.5-10.5) 06/28/24 11:13 Iron 54 ug/dL (37-145) 06/28/24 11:13 TIBC 221 mcg/dl 06/28/24 11:13 % Saturation 24.4 % (20-50) 06/28/24 11:13 Unsat Iron Binding 167 ug/dL (112-347) 06/28/24 11:13 Total Bilirubin 1.2 mg/dL (0.15-1.2) 06/28/24 11:13 AST 20 U/L (0-32) 06/28/24 11:13 ALT 18 U/L (0-33) 06/28/24 11:13 Alkaline Phosphatase 60 U/L (35-105) 06/28/24 11:13 Creatine Kinase 91 U/L (26-192) 06/28/24 11:13 Total Protein 6.9 g/dL (6.6-8.7) 06/28/24 11:13 Albumin 3.4 g/dL (3.5-5.2) L 06/28/24 11:13 Globulin 3.5 g/dL (1.3-4.6) 06/28/24 11:13 Vitamin B12 332 pg/mL (232-1245) 06/28/24 11:13 Procalcitonin 0.06 ng/mL (0-0.5) 06/28/24 11:13 Random Cortisol 17.06 ug/dL (2.47-19.5) 06/28/24 11:13 Urine Color Yellow (Yellow) 06/28/24 12:56 Urine Appearance Cloudy (CLEAR) A 06/28/24 12:56 Urine pH 5.5 (5-7) 06/28/24 12:56 Ur Specific Neely 1.041 (1.005-1.030) H 06/28/24 12:56 Urine Protein 1+ (Negative) A 06/28/24 12:56 Urine Glucose (UA) 3+ (Normal) H 06/28/24 12:56 Urine Ketones 2+ (Negative) H 06/28/24 12:56 Urine Blood Non-haemolysed trace (Negative) 06/28/24 12:56 Urine Nitrate Negative (Negative) 06/28/24 12:56 Urine Bilirubin Negative (Negative) 06/28/24 12:56 Urine Urobilinogen 1.0 mg/dL (Negative) 06/28/24 12:56 Ur Leukocyte Esterase 1+ (Negative) A 06/28/24 12:56 Urine RBC 6-10 /hpf (0-2) 06/28/24 12:56 Urine WBC 51-100 /hpf (0-5) H 06/28/24 12:56 Ur Squamous Epith Cells 6-10 /hpf (0-5) 06/28/24 12:56 Amorphous Sediment Not Reportable 06/28/24 12:56 Urine Bacteria Trace /hpf (NONE) 06/28/24 12:56 Hyaline Casts 2.05 /lpf 06/28/24 12:56 Urine Yeast 1+ /hpf H 06/28/24 12:56 All radiology interpretation(s) finalized by discharge Discharge Plan Discharge Patient Disposition: Placed in Observation Admit Provider: Brice Jarvis Clinical Impression: UTI (urinary tract infection), Orthostasis, On warfarin therapy, History of deep venous thrombosis (DVT) of distal vein of right lower extremity, Controlled type 2 diabetes mellitus with insulin therapy Coding Level of Care Code ED 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 for Chg Fwd Related Data Home Medications ?Medication ?Instructions ?Recorded ?Confirmed diphenhydramine HCl 25 mg tablet 25 mg PO TID PRN shobha rgies 06/18/24 06/28/24 (Wal-Dryl Allergy) insulin glargine 100 unit/mL (3 43 unit SUBCUT DAILY 0 06/18/24 06/28/24 mL) subcutaneous pen (Lantus Solostar U-100 Insulin) levothyroxine 75 mcg tablet 75 mcg PO QAM 06/28/2403/24 Previous Rx's ?Medication ?Instructions ?Recorded blood sugar diagnostic (Accu-Chek #300 ea 05/19/23 Guide test strips) empagliflozin 25 mg tablet 25 mg PO DAILY #90 tabs (Jardiance) ergocalciferol (vitamin D2) 1,250 1,250 mcg PO .weekly #12 caps 11/25/23 mcg (50,000 unit) capsule pantoprazole 40 mg tablet,delayed 40 mg PO DAILY #90 t abs 11/25/23 release (Protonix) warfarin 5 mg tablet 5 mg PO DAILY #90 tabs 11/24 albuterol sulfate 2.5 mg/3 mL 2.5 mg (3 mL) inhalation Q4H PRN 06/18/24 (0.083 %) solution for nebulization shortness of breat h or wheezing #180 mL Allergies Allergy/AdvReac Type Severity Reaction Status Date / Time apixaban (From Eliquis) Allergy Severe hives Verified 06/04/24 09:03 aspirin Allergy Severe hives Verified 06/04/24 09:03 berberine Allergy Severe hives Verified 06/04/24 09:03 cephalexin Allergy Severe hives Verified 06/04/24 09:03 clindamycin Allergy Severe hives Verified 06/04/24 09:03 lisinopril Allergy Severe cough Verified 06/04/24 09:03 metformin Allergy Severe hives Verified 06/04/24 09:03 penicillin G Allergy Severe hives Verified 06/04/24 09:03 semaglutide (From Ozempic) Allergy Severe gas Verified 06/04/24 09:03 Hntfarw-DBZ-KlP Reductase Allergy Severe hives Verified 06/04/24 09:03 Inhibitor Sulfa (Sulfonamide Allergy Severe hives Verified 06/04/24 09:03 Antibiotics) tetanus toxoid, adsorbed Allergy Severe hives Verified 06/04/24 09:03
--- NOTE | 2024-06-28 11:39 | PC.PHAR ---
Addendum entered by Beth Xiong 06/28/24 11:45: Pt had stopped Warfarin due to steroid therapy but was able to start taking again yesterday. Original Note: Pt has [facility] but does know her medications and can verify them.
[2024-06-28 11:44] LABS: Alanine Aminotransferase 18 U/L (0-33); Albumin Level 3.4 g/dL (3.5-5.2); Alkaline Phosphatase 60 U/L (35-105); Anion Gap 18.3 (5-19); Aspartate Amino Transferase 20 U/L (0-32); Blood Urea Nitrogen 16 mg/dL (8-23); Calcium 8.6 mg/dL (8.5-10.5); Carbon Dioxide 24 mmol/L (22-29); Chloride 100 mmol/L (98-107); Globulin 3.5 g/dL (1.3-4.6); Glucose 123 mg/dL (65-115); Osmolality Calculated 291 mOsm/kg (285-295); Potassium 3.3 mmol/L (3.5-5.1); Sodium 139 mmol/L (136-145); Total Bilirubin 1.2 mg/dL (0.15-1.2); Total Protein 6.9 g/dL (6.6-8.7)
[2024-06-28 12:16] LABS: INR 1.94 (0.8-1.2)
[2024-06-28] MEDS: ipratropium-albuterol 3 mL Neb INHALATION (12:16)
[2024-06-28 12:20] LABS: ABG PCO2 28.9 mmHg (35-45); ABG PH Result 7.48 (7.35-7.45); Alveolar-Arterial Oxygen Gradi 3.9 mmHg (5-10); Arterial Blood Gas Hematocrit 40.6 % (37-47); Blood Gas Operator Identificat AMH; Blood Gas Sample Site Brachial, left; Blood Gas Sample Type Arterial; Carboxyhemoglobin 1.3 %THgb (0.4-20.1); HCO3 ABG 21.5 mmol/L (22-26); HGB O2 Sat 95.1 % (95-100); Ionized Calcium Level - ABG 1.1 mmol/L (1.1-1.4); Oxygen Device ROOM AIR; Oxygen Saturation ABG 97.4; PO2 ABG 81.9 mmHg (80.0-100.0); PO2 FiO2 Ratio Arterial Blood 390; Potassium Level - ABG 3.1 mmol/L (3.5-5.0); Total Hemoglobin 13.2 g/dL (12-16)
[2024-06-28 13:03] LABS: Bilirubin Urine Negative (Negative); Blood Urine Non-haemolysed trace (Negative); Glucose Urine UA 3+ (Normal); Ketones Urine 2+ (Negative); Leukocyte Esterase Urine 1+ (Negative); Nitrate Urine Negative (Negative); Protein Urine 1+ (Negative); Urine Appearance Cloudy (CLEAR); Urine Color Yellow (Yellow); pH Urine 5.5 (5-7)
[2024-06-28 13:08] LABS: Add Urine Microscopic? YES; Bacteria Urine Trace /hpf; Hyaline Casts Urine 2.05 /lpf; WBC Urine 51-100 /hpf (0-5)
[2024-06-28 13:19] LABS: Add Urine Culture? Yes; Specific Gravity, Urine 1.041 (1.005-1.030); UA Slide Review UA Slide Review Perf
[2024-06-28] MEDS: sodium chloride 0.9% 500 ML 999 ML IV (14:22)
[2024-06-28] MEDS: ciprofloxacin 400 MG/200 ML PREMIX 200 MG IV (16:00)
--- NOTE | 2024-06-28 16:06 | PM.HP ---
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 As per patient he was in the ER earlier this month in which she was diagnosed of bronchitis and was sent home on oral steroid taper along with oral antibiotics. She finished a course of antibiotics and steroids but since then has been getting more weak with episodes of dizziness on standing up. Denies any episodes of passing out or falls. Denies any nausea, vomiting, headache. Denies any diarrhea. Does complain of poor appetite recently. States she thinks she needs to take care of herself better than what she has been doing. In the ER she was given 1 L of IV fluid bolus. There was a concern for UTI was being discharged on oral antibiotics but had positive orthostatic with heart rate going up to 120s on standing up hence hospitalist service was requested. Review of Systems General: Reports: 10 or more systems reviewed and unremarkable except in HPI and below Const: Denies: fever(s), chills, body aches, change in appetite, change in weight, malaise, night sweats, diaphoresis, change in sleep pattern, daytime sleepiness or snoring Eyes: Denies: change in vision, blurry vision, photophobia, eye discomfort or eye discharge ENMT: Denies: throat pain, enlarged tonsils, hoarseness, mouth pain, oral sores, dry mouth, tinnitus, nasal congestion or post nasal drip Card: Denies: chest pain, palpitations, irregular heart rhythm, edema, swelling of feet/ankles, lightheadedness, syncope, pre-syncope, dyspnea on exertion, orthopnea, leg pain with exertion or acrocyanosis Resp: Denies: dyspnea, productive cough, non-productive cough, wheezing, stridor, pain on inspiration, change in phlegm color, hemoptysis or chest congestion GI: Denies: abdominal pain, nausea, vomiting, hematemesis, coffee ground emesis, dysphagia, heartburn, diarrhea, constipation, bloating, GI cramping, change in bowel habits, pain on defecation, hematochezia or melena : Denies: flank pain, dysuria, urinary frequency, urinary urgency, urinary hesitancy, nocturia or hematuria Musc: Denies: neck pain, back pain, extremity pain, joint pain, joint swelling, joint redness, joint stiffness or limited range of motion Neuro: Denies: headache(s), numbness in extremities, weakness in extremities, sensory changes, lack of coordination, difficulty walking, frequent falls, dizziness, vertigo, confusion, Slurred speech present, difficulty communicating thoughts or seizure-like activity Psych: Denies: anxiety, depression, mood swings, panic attacks, hopelessness or irritability Endo: Denies: polyuria, polydipsia, tired all the time, cold intolerance, excessive sweating, flushing or heat intolerance Sheldon/Lymph: Denies: easy bruising or easy bleeding All/Imm: Denies: tongue swelling, facial swelling or acute wheezing Medications/Allergies Home Medications ?Medication ?Instructions ?Recorded ?Confirmed ?Last Taken ?Type blood sugar diagnostic (Accu-Chek #300 ea 05/19/23 06/28/24 Unknown Rx Guide test strips) empagliflozin 25 mg tablet 25 mg PO DAILY #90 tabs 11/25/23 06/28/24 06/28/24 Rx (Jardiance) ergocalciferol (vitamin D2) 1,250 1,250 mcg PO .weekly #12 caps 11/25/23 06/28/24 06/24/24 Rx mcg (50,000 unit) capsule pantoprazole 40 mg tablet,delayed 40 mg PO DAILY #90 tabs 11/25/23 06/28/24 06/28/24 Rx release (Protonix) warfarin 5 mg tablet 5 mg PO DAILY #90 tabs 11/25/23 06/28/24 06/28/24 Rx albuterol sulfate 2.5 mg/3 mL 2.5 mg (3 mL) inhalation Q4H PRN 06/18/24 06/28/24 Unknown Rx (0.083 %) solution for nebulization shortness of breath or wheezing #180 mL diphenhydramine HCl 25 mg tablet 25 mg PO TID PRN allergies 06/18/24 06/28/24 06/16/24 History (Wal-Dryl Allergy) levothyroxine 75 mcg tablet 75 mcg PO QAM 06/28/24 06/28/24 06/28/24 History insulin glargine 100 unit/mL (3 35 unit (0.35 mL) SUBCUT DAILY #3 06/29/24 06/28/24 06/28/24 Rx mL) subcutaneous pen (Lantus mL Solostar U-100 Insulin) Allergies Allergy/AdvReac Type Severity Reaction Status Date / Time apixaban (From Eliquis) Allergy Severe hives Verified 06/04/24 09:03 aspirin Allergy Severe hives Verified 06/04/24 09:03 berberine Allergy Severe hives Verified 06/04/24 09:03 cephalexin Allergy Severe hives Verified 06/04/24 09:03 clindamycin Allergy Severe hives Verified 06/04/24 09:03 lisinopril Allergy Severe cough Verified 06/04/24 09:03 metformin Allergy Severe hives Verified 06/04/24 09:03 penicillin G Allergy Severe hives Verified 06/04/24 09:03 semaglutide (From Ozempic) Allergy Severe gas Verified 06/04/24 09:03 Qjszhyz-BBS-KnT Reductase Allergy Severe hives Verified 06/04/24 09:03 Inhibitor Sulfa (Sulfonamide Allergy Severe hives Verified 06/04/24 09:03 Antibiotics) tetanus toxoid, adsorbed Allergy Severe hives Verified 06/04/24 09:03 PFSH Acute PFSH: Medical History Low back pain Heart murmur Statin intolerance Diabetic retinopathy associated with controlled type 2 diabetes mellitus has had laser treatments; Dr. 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; needs lifelong anticoagulation; weekly home INR done On warfarin therapy Hypovitaminosis D GERD without esophagitis Acquired hypothyroidism Surgical History Hx of right breast biopsy benign S/P cholecystectomy open Hx of hysterectomy Hyst with BSO--done b/c of ovarian cyst--benign H/O unilateral salpingectomy left tube removal for cyst in 30s Hx of colonoscopy with polypectomy 2015; 01.27.23 polyps; tubular adenoma--f/u 3 yrs Family History Mother , at age 69 Stroke Heart disease Diabetes Hyperlipidemia Father , at age 72 Heart disease Diabetes Hyperlipidemia Hypertension Sister Clotting disorder Heart disease Diabetes Stroke Uterine cancer 30's Denies family history of Colon cancer Ovarian cancer Breast cancer Anesthesia complication Thyroid disease Social History Smoking and tobacco/nicotine status: never used tobacco/nicotine Alcohol intake: never Substance/Drug Use: never Household members: none Marital status: / Marital status details: one step son in [place] Number of children: 0 Highest education level completed: Bachelor's Degree Current occupational status: retired 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 Female Reproductive History: Spontaneous abortions: No Vitals/I&O/Wt Last Vital Signs Temp 97.6 F 06/28/24 11:00 Pulse 76 06/28/24 15:00 Resp 18 06/28/24 12:17 BP 138/71 06/28/24 15:00 Pulse Ox 99 06/28/24 15:00 O2 Del Method Room Air 06/28/24 15:00 06/28/24 06/28/24 06/28/24 06:59 14:59 22:59 Intake Total 500 / 500 Balance 500 / 500 Weight last 48 hrs Weight 143.789 kg Physical Exam Narrative: General: No acute distress, AO x3, morbidly obese, tired appearing HEENT: PERRLA, pupils bilaterally equal and reactive Chest: Normal vesicular breath sounds, no added sounds, equal good air entry bilaterally CVS: S1-S2 regular, no murmurs, no tachycardia, no gallops, no rubs Abdomen: Soft, nontender, no organomegaly, bowel sounds present Neuro: No focal deficits, no facial deformity, AO x3, power 5/5 in all limbs Data 06/29/24 04:06 06/29/24 04:06 Micro: Microbiology 06/28/24 15:53 Blood Culture - Preliminary Blood SPECIMEN COLLECTED 06/28/24 15:28 Blood Culture - Preliminary Blood SPECIMEN COLLECTED A&P Assessment and plan (1) UTI (urinary tract infection): (2) Sepsis: (3) Controlled type 2 diabetes mellitus with insulin therapy: (4) Acquired hypothyroidism: (5) History of deep venous thrombosis (DVT) of distal vein of right lower extremity: (6) On warfarin therapy: (7) Orthostasis: (8) Weakness: Plan 73-year-old lady with past medical history of type 2 diabetes mellitus, hypertension recently discharged from the ER on steroids and antibiotics for bronchitis presents with worsening weakness and poor appetite. Generalized weakness: Unsure etiology. Could be in setting of steroid induced myopathy though unlikely as patient was only on few days of oral steroids. Will check CPK. Check cortisol levels. Check CT head given history of being on Coumadin. Patient did have orthostatic hypotension that could be the reason of generalized weakness as well. Patient does not seem to be on antihypertensive as an outpatient. Could be in setting of dehydration from poor oral intake. Plan for 500 cc of IV fluid bolus continue with NS at 100 cc/h after that. Check CTA to rule out PE given history of multiple DVTs in the past. Does have occasional subtherapeutic INR. Infectious cause less likely though there was a concern of possible UTI on admission. Patient herself denies any dysuria. No leukocytosis. For now follow-up urine culture and blood culture. Empirically start on IV ceftriaxone. Physical therapy evaluation. Orthostatic hypotension: Could be in setting of dehydration. Check orthostatic blood pressures every shift. IV fluid as above. Cortisol level as above. Type of diabetes mellitus: Check A1c. For now continue with home dose of Lantus and insulin sliding scale. Hold Jardiance. Full code Carb consistent diet Protonix for PUD prophylaxis Heparin for DVT prophylaxis PDMP PDMP Reviewed: Not Reviewed Attestations Medical Necessity Statement*: Admission for more than 2 midnights for management of orthostatic hypotension, generalized weakness Diagnoses UTI (urinary tract infection) N39.0 Sepsis A41.9 Controlled type 2 diabetes mellitus with insulin therapy E11.9; Z79.4 Acquired hypothyroidism E03.9 History of deep venous thrombosis (DVT) of distal vein of right lower extremity Z86.718 On warfarin therapy Z79.01 Orthostasis I95.1 Weakness R53.1
[2024-06-28 16:52] LABS: Procalcitonin 0.06 ng/mL (0-0.5)
--- NOTE | 2024-06-28 17:48 | USCV_ITS ---
Mary Taylor Age: 73 Gender: F : 1950 Exam Date: 06/28/2024 18:43 Ordering Phys: Brice Jarvis MD Technologist: KARLEY Exam Location: [facility] [place] Indication: sepsis, SOB, persistent cough, morbid obesity BP: 147 / 69 HR: 80 Rhythm: Sinus Technical Quality: Adequate MEASUREMENTS (Male / Female) Normal Values 2D ECHO LV Diastolic Diameter PLAX 3.2 cm 4.2 - 5.9 / 3.9 - 5.3 cm IVS Diastolic Thickness 2.1 cm 0.6 - 1.0 / 0.6 - 0.9 cm IVS Systolic Thickness 2.2 cm LVPW Diastolic Thickness 1.5 cm 0.6 - 1.0 / 0.6 - 0.9 cm LVPW Systolic Thickness 1.6 cm LVOT Diameter 2.1 cm LV Ejection Fraction 2D Teich 66.1 % LV Ejection Fraction MOD 4C 67.0 % LV Ejection Fraction MOD 2C 61.1 % LV Ejection Fraction 2C AL 61.4 % LA Diameter 3.5 cm Aorta at Sinotubular Diameter 2.5 cm IVC Diameter 1.2 cm M-MODE LA Ao Ratio MM 1.4 AV Cusp Separation MM 1.6 cm DOPPLER AV Peak Velocity 279.3 cm/s LVOT Peak Velocity 176.0 cm/s AV Area Cont Eq vti 2.2 cm squared AV Area Cont Eq pk 2.1 cm squared MV Peak Velocity 146.0 cm/s MV Area PHT 2.5 cm squared Mitral E to A Ratio 0.6 TR Peak Velocity 277.0 cm/s TR Peak Gradient 30.7 mmHg TV Peak E Velocity 54.0 cm/s PV Peak Velocity 142.0 cm/s FINDINGS Left Ventricle Left ventricle is normal in size. LV systolic function is normal with EF of 60 to 65%. No regional wall motion abnormalities. Moderate to severe left ventricular hypertrophy. Grade 1 diastolic dysfunction. Right Ventricle Normal in size and function Right Atrium Normal in size Left Atrium Normal in size Mitral Valve Moderate mitral annular calcification. Mild mitral regurgitation. Aortic Valve Aortic valve is thickened. Mild aortic stenosis with aortic valve area of 2.2 cm. Mean gradient of 13 mmHg. Tricuspid Valve Mild tricuspid regurgitation. RVSP is 30-35mmHg. Pulmonic Valve Not well visualized. Pericardium Grossly normal Aorta Normal in size IVC Appears to be normal CONCLUSIONS LV systolic function is normal with EF of 60-65%. Grade 1 diastolic dysfunction Moderate to severe left ventricular hypertrophy Grade 1 diastolic dysfunction Mild mitral regurgitation Mild aortic stenosis Mild tricuspid regurgitation. Eze Puri MD (Electronically Signed) Final Date: 29 Jun 2024 09:55 S
[2024-06-28 17:50] LABS: Creatine Phosphokinase 91 U/L (26-192)
[2024-06-28] MEDS: sodium chloride 0.9% 1,000 ML 999 ML IV (18:11)
[2024-06-28] MEDS: pantoprazole 40 mg SDV IVP (18:12)
[2024-06-28] MEDS: cefTRIAXone 1,000 mg SDV 1000 MG IVP (18:12)
[2024-06-28 18:19] LABS: Iron 54 ug/dL (37-145); Percent Saturation 24.4 % (20-50); Total Iron Binding Capacity 221 mcg/dl; Unsaturated Iron Binding 167 ug/dL (112-347)
[2024-06-28 18:27] LABS: Glucose Point of Care 73 mg/dL (70-110)
[2024-06-28 18:35] LABS: Vitamin B12 332 pg/mL (232-1245)
[2024-06-28 20:16] LABS: Cortisol Random 17.06 ug/dL (2.47-19.5)
[2024-06-28 20:26] LABS: Glucose Point of Care 98 mg/dL (70-110)
[2024-06-28] MEDS: sodium chloride 0.9% 1,000 ML 100 ML IV (20:36)
--- NOTE | 2024-06-28 22:07 | CTR_ITS ---
PROCEDURE INFORMATION: Exam: CT Head Without Contrast Exam date and time: 06/28/2024 10:49 PM Age: 73 years old Clinical indication: Walking, difficulty and weakness, extremity TECHNIQUE: Imaging protocol: Computed tomography of the head without contrast. Radiation optimization: All CT scans at this facility use at least one of these dose optimization techniques: automated exposure control; mA and/or kV adjustment per patient size (includes targeted exams where dose is matched to clinical indication); or iterative reconstruction. COMPARISON: No relevant prior studies available. RADIATION DOSE METRICS: Total DLP (mGy-cm): 1056.59 FINDINGS: Brain: Normal. No hemorrhage. Unremarkable white matter. No mass effect. Cerebral ventricles: No ventriculomegaly. Paranasal sinuses: There is some fluid in the sphenoid sinus. Mastoid air cells: Visualized mastoid air cells are well aerated. Bones: Unremarkable. No acute fracture. Soft tissues: Unremarkable. CT/CT head wo con* [id number] IMPRESSION: No significant findings
--- NOTE | 2024-06-28 22:07 | CTR_ITS ---
PROCEDURE INFORMATION: Exam: CTA Chest With Contrast Exam date and time: 06/28/2024 10:53 PM Age: 73 years old Clinical indication: Shortness of breath; Additional info: H/o pe, orthostatic hypotension TECHNIQUE: Imaging protocol: Computed tomographic angiography of the chest with contrast. Exam focused on the arteries. 3D rendering (Not supervised by radiologist): MIP and/or 3D reconstructed images were created by the technologist. Radiation optimization: All CT scans at this facility use at least one of these dose optimization techniques: automated exposure control; mA and/or kV adjustment per patient size (includes targeted exams where dose is matched to clinical indication); or iterative reconstruction. Contrast material: OMNI 350; Contrast volume: 100 ml; Contrast route: INTRAVENOUS (IV); COMPARISON: CT angio chest PE protcl [id number] 06/18/2024 9:48 AM RADIATION DOSE METRICS: Total DLP (mGy-cm): 449.56 FINDINGS: Pulmonary arteries: No pulmonary embolus. Aorta: Unremarkable. No aortic aneurysm. No aortic dissection. Lungs: Bibasilar atelectasis. Pleural spaces: Unremarkable. No pneumothorax. No pleural effusion. Heart: Mitral valve calcification. Coronary arteries: Mild coronary artery calcifications. Lymph nodes: Unremarkable. No enlarged lymph nodes. Bones/joints: Unremarkable. No acute fracture. Soft tissues: Unremarkable. CT/CT angio chest PE protcl [id number] IMPRESSION: No pulmonary embolus.
[2024-06-28 22:52] LABS: Troponin(5th) Baseline 49 ng/L (0-10)
[2024-06-28] MEDS: iohexol 350 mg/mL 500 mL Btl (per mL) IV (23:04)
--- NOTE | 2024-06-28 23:18 | ECG_ITS ---
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 Measurements Intervals [place] Rate: 71 P: 32 DE: 169 QRS: 15 QRSD: 101 T: 41 QT: 419 QTc: 455 Interpretive Statements SINUS RHYTHM WITH SINUS ARRHYTHMIA NONSPECIFIC T-WAVE ABNORMALITY Compared to ECG 06/28/2024 11:15:55 T-wave abnormality now present Electronically Signed On 07-02-2024 09:27:43 CDT by Eze Puri M.D. [email or web address] [id number]
[2024-06-29] VITALS (8 sets, daily range): BP systolic 90–136; BP diastolic 60–79; PULSE 70–97; RESP 16–18; TEMP 36.6–36.7; O2SAT 94–97; BMI 49.2
--- NOTE | 2024-06-29 00:10 | ECG_ITS ---
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 Measurements Intervals [place] Rate: 85 P: 6 NM: 165 QRS: 6 QRSD: 91 T: 29 QT: 373 QTc: 445 Interpretive Statements SINUS RHYTHM POSSIBLE ANTERIOR MYOCARDIAL INFARCTION , PROBABLY OLD [30 ms Q WAVE IN V3/V4, OR R < 0.2 mV IN V4] Compared to ECG 06/28/2024 23:18:22 Myocardial infarct finding now present Sinus arrhythmia no longer present T-wave abnormality no longer present Electronically Signed On 07-02-2024 10:33:19 CDT by Eze Puri M.D. [id number] [id number]
[2024-06-29 01:29] LABS: Troponin 5 2HR 47.78 ng/L (0-10)
[2024-06-29 01:31] LABS: Troponin 5 2HR Delta -1.22 ABS# (0-10)
[2024-06-29 04:13] LABS: Basophils % 0.1 %; Eosinophils # 0.1 10^3/uL (0.0-0.8); Eosinophils % 0.9 %; Hematocrit 33.9 % (36-47); Lymphocytes # 1.5 10^3/uL (0.8-4.8); Lymphocytes % 14.1 %; Mean Corpuscular Hemoglobin 28.6 pg (27-33); Mean Corpuscular Volume 92.4 fl (85-98); Mean Platelet Volume 9.5 fL (7.4-10.4); Monocytes % 9.4 %; Neutrophils # 7.88 10^3/uL (1.8-7.7); Neutrophils % 74.6 %; Nucleated Red Blood Cells % 0 %; Platelet Count 229 10^3/cmm (157-399); Red Blood Count 3.67 10^6/uL (3.85-5.65); Red Cell Distribution Width 15.4 % (12.1-15.1); White Blood Count 10.56 10^3/uL (3.29-11.43)
[2024-06-29 04:25] LABS: INR 2.88 (0.8-1.2)
[2024-06-29 04:35] LABS: Alanine Aminotransferase 13 U/L (0-33); Albumin Level 2.6 g/dL (3.5-5.2); Alkaline Phosphatase 44 U/L (35-105); Anion Gap 15.9 (5-19); Aspartate Amino Transferase 19 U/L (0-32); Blood Urea Nitrogen 12 mg/dL (8-23); Calcium 7.5 mg/dL (8.5-10.5); Carbon Dioxide 21 mmol/L (22-29); Chloride 105 mmol/L (98-107); Creatinine Clr Calc Pharmacy 77.2664; Globulin 2.5 g/dL (1.3-4.6); Glucose 51 mg/dL (65-115); Osmolality Calculated 285 mOsm/kg (285-295); Phosphorus 2.8 mg/dL (2.5-4.5); Sodium 139 mmol/L (136-145); Total Bilirubin 0.7 mg/dL (0.15-1.2); Total Protein 5.1 g/dL (6.6-8.7)
[2024-06-29 04:41] LABS: Procalcitonin 0.06 ng/mL (0-0.5)
[2024-06-29 04:42] LABS: Cortisol Random 9.67 ug/dL (2.47-19.5)
[2024-06-29 04:52] LABS: Potassium 2.9 mmol/L (3.5-5.1)
[2024-06-29 04:54] LABS: Folate Level 10.5 ng/mL (4.8-37.3)
[2024-06-29] MEDS: levothyroxine 75 mcg Tablet PO (05:40)
[2024-06-29] MEDS: sodium chloride 0.9% 1,000 ML 100 ML IV (05:40)
[2024-06-29] MEDS: potassium chloride ER 20 mEq Tablet 40 MEQ PO ×2 (05:42→14:14)
[2024-06-29 07:13] LABS: Glucose Point of Care 55 mg/dL (70-110)
[2024-06-29 07:24] LABS: Glucose Point of Care 72 mg/dL (70-110)
[2024-06-29 08:34] LABS: Glucose Point of Care 111 mg/dL (70-110)
[2024-06-29] MEDS: docusate sodium 100 mg Capsule PO (09:02)
[2024-06-29] MEDS: potassium chloride oral liq 20 mEq/15 mL UDC 40 MEQ PO ×2 (09:34→10:38)
[2024-06-29] MEDS: insulin glargine 100 units/1 mL 43 UNIT SUBCUT (09:34)
[2024-06-29 10:42] LABS: Glucose Point of Care 126 mg/dL (70-110)
--- NOTE | 2024-06-29 13:01 | PM.DCS ---
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 As per patient he was in the ER earlier this month in which she was diagnosed of bronchitis and was sent home on oral steroid taper along with oral antibiotics. She finished a course of antibiotics and steroids but since then has been getting more weak with episodes of dizziness on standing up. Denies any episodes of passing out or falls. Denies any nausea, vomiting, headache. Denies any diarrhea. Does complain of poor appetite recently. States she thinks she needs to take care of herself better than what she has been doing. In the ER she was given 1 L of IV fluid bolus. There was a concern for UTI was being discharged on oral antibiotics but had positive orthostatic with heart rate going up to 120s on standing up hence hospitalist service was requested. Hospital Course Hospital Course She is admitted to the hospital further evaluation and management. Patient responded well to the treatment and improved faster than expected. Patient's orthostatic hypotension was resolved. She received IV fluid bolus and was continued on IV fluids overnight. Blood pressures improved. He worked well with physical therapy. Steroid-induced myopathy was ruled out with normal Giurgius CPK. She did have normal cortisol levels. During hospitalization she was found to have fasting hypoglycemia with blood sugar dropping down to 50. There is a possibility of generalized weakness because of hypoglycemia given tight blood sugar controls. Safe discharge plan were discussed in detail with patient and patient's caregiver/neighbors at bedside. Patient verbalized understanding and wanted to be transition back home possibly today as she was feeling well. She did not have any dizziness or orthostatic hypotension on the day of discharge. She has been discharged in hemodynamically stable condition on Lantus 35 units daily instead of 43 units daily. She is to check her blood sugars daily fasting and randomly. She is advised fasting blood sugar should be between 100-120 while random blood sugars should be less than 140. Physical Exam Narrative: General: No acute distress, AO x3, morbidly obese, tired appearing HEENT: PERRLA, pupils bilaterally equal and reactive Chest: Normal vesicular breath sounds, no added sounds, equal good air entry bilaterally CVS: S1-S2 regular, no murmurs, no tachycardia, no gallops, no rubs Abdomen: Soft, nontender, no organomegaly, bowel sounds present Neuro: No focal deficits, no facial deformity, AO x3, power 5/5 in all limbs Discharge Data Studies Completed and Pending Completed Studies During Hospitalization Category Date Time Status CT head wo con* [id number] Routine Cat Scan 06/28/24 22:07 Completed CTA chest [CT angio chest PE protcl [id number]] Routine Cat Scan 06/28/24 22:07 Completed XR chest 1V portable [id number] Stat Exams 06/28/24 11:03 Completed CV. echo complete* [id number] Routine Ultrasound 06/28/24 17:48 Completed Pending at discharge Category Date Time Status Blood Culture Stat Lab 06/28/24 15:53 Results Complete Blood Count w/Auto AM LABS Lab 06/30/24 04:00 Ordered Complete Blood Count w/Auto AM LABS Lab 07/01/24 04:00 Ordered Comprehensive Metabolic Panel AM LABS Lab 06/30/24 04:00 Ordered Comprehensive Metabolic Panel AM LABS Lab 07/01/24 04:00 Ordered Magnesium AM LABS Lab 06/30/24 04:00 Ordered Magnesium AM LABS Lab 07/01/24 04:00 Ordered Phosphorus AM LABS Lab 06/30/24 04:00 Ordered Phosphorus AM LABS Lab 07/01/24 04:00 Ordered Prothrombin Time INR AM LABS Lab 06/30/24 04:00 Ordered Prothrombin Time INR AM LABS Lab 07/01/24 04:00 Ordered Radiology Impressions Chest X-Ray 06/28/24 11:03 Impression: Atherosclerosis. Chest CTA 06/28/24 22:07 IMPRESSION: No pulmonary embolus. Head CT 06/28/24 22:07 IMPRESSION: No significant findings Microbiology 06/28/24 12:56 Urine,Clean Catch Urine Culture - Final 06/28/24 15:53 Blood Blood Culture - Preliminary SPECIMEN COLLECTED 06/28/24 15:28 Blood Blood Culture - Preliminary SPECIMEN COLLECTED Laboratory Results WBC 10.56 10^3/uL (3.29-11.43) 06/29/24 04:06 RBC 3.67 10^6/uL (3.85-5.65) L 06/29/24 04:06 Hgb 10.50 g/dL (11.27-16.99) L 06/29/24 04:06 Hct 33.9 % (36-47) L 06/29/24 04:06 MCV 92.4 fl (85-98) 06/29/24 04:06 MCH 28.6 pg (27-33) 06/29/24 04:06 MCHC 31.0 g/dL (30-55) 06/29/24 04:06 RDW 15.4 % (12.1-15.1) H 06/29/24 04:06 Plt Count 229 10^3/cmm (157-399) 06/29/24 04:06 MPV 9.5 fL (7.4-10.4) 06/29/24 04:06 Neut % (Auto) 74.6 % 06/29/24 04:06 Lymph % (Auto) 14.1 % 06/29/24 04:06 [place] % (Auto) 9.4 % 06/29/24 04:06 Eos % (Auto) 0.9 % 06/29/24 04:06 Baso % (Auto) 0.1 % 06/29/24 04:06 Neut # (Auto) 7.88 10^3/uL (1.8-7.7) H 06/29/24 04:06 Lymph # (Auto) 1.5 10^3/uL (0.8-4.8) 06/29/24 04:06 [place] # (Auto) 1.0 10^3/uL (0.2-0.9) H 06/29/24 04:06 Eos # (Auto) 0.1 10^3/uL (0.0-0.8) 06/29/24 04:06 Baso # (Auto) 0.0 10^3/uL (0.0-0.1) 06/29/24 04:06 Nucleated RBC % (auto) 0 % 06/29/24 04:06 Nucleated RBCs # 0.0 /100WBC 06/29/24 04:06 PT 31.70 SECONDS (12.1-14.9) H D 06/29/24 04:06 INR 2.88 (0.8-1.2) H 06/29/24 04:06 Specimen Type Arterial 06/28/24 12:09 Sample Site Brachial, left 06/28/24 12:09 ABG pH 7.48 (7.35-7.45) H 06/28/24 12:09 ABG pCO2 28.9 mmHg (35-45) L 06/28/24 12:09 ABG pO2 81.9 mmHg (80.0-100.0) 06/28/24 12:09 ABG PO2/FiO2 Ratio 390 06/28/24 12:09 ABG HCO3 21.5 mmol/L (22-26) L 06/28/24 12:09 ABG O2 Saturation 97.4 06/28/24 12:09 ABG Base Excess -1.0 mmol/L (-2.0-2.0) 06/28/24 12:09 Rebel Test N/a 06/28/24 12:09 A-a O2 Gradient 3.9 mmHg (5-10) L 06/28/24 12:09 Hematocrit 40.6 % (37-47) 06/28/24 12:09 Hgb O2 Saturation 95.1 % (95-100) 06/28/24 12:09 Carboxyhemoglobin 1.3 %THgb (0.4-20.1) 06/28/24 12:09 Methemoglobin 1.0 % (0.4-1.5) 06/28/24 12:09 Total Hemoglobin 13.2 g/dL (12-16) 06/28/24 12:09 Sodium 136.0 mmol/L (131-143) 06/28/24 12:09 Potassium 3.1 mmol/L (3.5-5.0) L 06/28/24 12:09 Glucose 121.0 mg/dL (70-115) H 06/28/24 12:09 Ionized Calcium 1.1 mmol/L (1.1-1.4) 06/28/24 12:09 O2 Delivery Device Room air 06/28/24 12:09 FiO2 21.0 % 06/28/24 12:09 Ultrasound Tech ID Amh 06/28/24 12:09 Sodium 139 mmol/L (136-145) 06/29/24 04:06 Potassium 2.9 mmol/L (3.5-5.1) L 06/29/24 04:06 Chloride 105 mmol/L (98-107) 06/29/24 04:06 Carbon Dioxide 21 mmol/L (22-29) L 06/29/24 04:06 Anion Gap 15.9 (5-19) 06/29/24 04:06 BUN 12 mg/dL (8-23) 06/29/24 04:06 Creatinine 0.9 mg/dL (0.5-0.9) 06/29/24 04:06 GFR Calculation Not Reportable 06/29/24 04:06 Glucose 51 mg/dL (65-115) L 06/29/24 04:06 POC Glucose 126 mg/dL (70-110) H 06/29/24 10:24 Calculated Osmolality 285 mOsm/kg (285-295) 06/29/24 04:06 Lactic Acid 2.0 mmol/L (0.5-2.2) 06/28/24 15:28 Calcium 7.5 mg/dL (8.5-10.5) L 06/29/24 04:06 Phosphorus 2.8 mg/dL (2.5-4.5) 06/29/24 04:06 Magnesium 2.0 mg/dL (1.7-2.3) 06/29/24 04:06 Iron 54 ug/dL (37-145) 06/28/24 11:13 TIBC 221 mcg/dl 06/28/24 11:13 % Saturation 24.4 % (20-50) 06/28/24 11:13 Unsat Iron Binding 167 ug/dL (112-347) 06/28/24 11:13 Total Bilirubin 0.7 mg/dL (0.15-1.2) 06/29/24 04:06 AST 19 U/L (0-32) 06/29/24 04:06 ALT 13 U/L (0-33) 06/29/24 04:06 Alkaline Phosphatase 44 U/L (35-105) 06/29/24 04:06 Creatine Kinase 91 U/L (26-192) 06/28/24 11:13 Troponin T Baseline 49 ng/L (0-10) H 06/28/24 22:25 Troponin T 120 Minute 47.78 ng/L (0-10) H 06/29/24 00:25 Delta Troponin T -1.22 ABS# (0-10) L 06/29/24 00:25 Troponin T Hi Sens 6Hr 44.60 ng/L (0-10) H 06/29/24 04:06 Troponin T Hi Sens 6Hr Delta -4.40 ng/L (0-12) L 06/29/24 04:06 Total Protein 5.1 g/dL (6.6-8.7) L D 06/29/24 04:06 Albumin 2.6 g/dL (3.5-5.2) L 06/29/24 04:06 Globulin 2.5 g/dL (1.3-4.6) 06/29/24 04:06 Vitamin B12 332 pg/mL (232-1245) 06/28/24 11:13 Folate 10.5 ng/mL (4.8-37.3) 06/29/24 04:06 Procalcitonin 0.06 ng/mL (0-0.5) 06/29/24 04:06 Random Cortisol 9.67 ug/dL (2.47-19.5) 06/29/24 04:06 Urine Color Yellow (Yellow) 06/28/24 12:56 Urine Appearance Cloudy (CLEAR) A 06/28/24 12:56 Urine pH 5.5 (5-7) 06/28/24 12:56 Ur Specific [place] 1.041 (1.005-1.030) H 06/28/24 12:56 Urine Protein 1+ (Negative) A 06/28/24 12:56 Urine Glucose (UA) 3+ (Normal) H 06/28/24 12:56 Urine Ketones 2+ (Negative) H 06/28/24 12:56 Urine Blood Non-haemolysed trace (Negative) 06/28/24 12:56 Urine Nitrate Negative (Negative) 06/28/24 12:56 Urine Bilirubin Negative (Negative) 06/28/24 12:56 Urine Urobilinogen 1.0 mg/dL (Negative) 06/28/24 12:56 Ur Leukocyte Esterase 1+ (Negative) A 06/28/24 12:56 Urine RBC 6-10 /hpf (0-2) 06/28/24 12:56 Urine WBC 51-100 /hpf (0-5) H 06/28/24 12:56 Ur Squamous Epith Cells 6-10 /hpf (0-5) 06/28/24 12:56 Amorphous Sediment Not Reportable 06/28/24 12:56 Urine Bacteria Trace /hpf (NONE) 06/28/24 12:56 Hyaline Casts 2.05 /lpf 06/28/24 12:56 Urine Yeast 1+ /hpf H 06/28/24 12:56 Vitals Last Vital Signs Temp 98.1 F 06/29/24 12:00 Pulse 71 06/29/24 12:00 Resp 16 06/29/24 12:00 BP 90/60 06/29/24 12:00 Pulse Ox 96 06/29/24 12:00 O2 Del Method Room Air 06/29/24 12:00 Discharge Plan Discharge Patient Disposition: Home Condition: Stable Prescriptions: Continued (DME) Accu-Chek Guide test strips Strip See Rx Instructions .Route Qty: 300 3RF Rx Instructions: Test blood sugars up to 3x daily Jardiance 25 mg tablet 25 mg PO DAILY Qty: 90 3RF ergocalciferol (vitamin D2) 1,250 mcg (50,000 unit) capsule 1,250 mcg PO .weekly Qty: 12 3RF Rx Instructions: Sundays pantoprazole [Protonix] 40 mg tablet,delayed release (DR/EC) 40 mg PO DAILY Qty: 90 3RF warfarin 5 mg tablet 5 mg PO DAILY Qty: 90 3RF Protocol: Dose Management Condition: Tuesday Dose/Route: 5 mg Instruction: 1 x 5 mg tablet Condition: Tuesday Dose/Route: 5 mg Instruction: 1 x 5 mg tablet Condition: Tuesday Dose/Route: 5 mg Instruction: 1 x 5 mg tablet Condition: Tuesday Dose/Route: 2.5 mg Instruction: 0.5 x 5 mg tablets Condition: Dose/Route: 5 mg Instruction: 1 x 5 mg tablet Condition: Tuesday Dose/Route: 5 mg Instruction: 1 x 5 mg tablet Condition: Tuesday Dose/Route: 5 mg Instruction: 1 x 5 mg tablet Protocol Text: Adjustment Start Date: Tuesday09/14/21 INR Value: 34.40 SECONDS INR Date: 09/14/21 Recheck Date: 10/14/21 diphenhydramine HCl [Wal-Dryl Allergy] 25 mg Tablet 25 mg PO TID PRN (Reason: allergies) albuterol sulfate 2.5 mg /3 mL (0.083 %) solution for nebulization 2.5 mg inhalation Q4H PRN (Reason: shortness of breath or wheezing) Qty: 180 0RF levothyroxine 75 mcg tablet 75 mcg PO QAM Changed insulin glargine [Lantus Solostar U-100 Insulin] 100 unit/mL (3 mL) insulin pen 35 unit SUBCUT DAILY Qty: 3 0RF Discharge Orders: Discharge Order (Routine); Ordered 06/29/24 Ordered By: Brice Jarvis Referrals: Kathy Aldridge MD [Primary Care Provider, [facility]] - 2 weeks Referral Note: We have notified your physician's clinic of the need for a follow-up appointment to be scheduled. If you have not heard from them within the next 2 business days, please call them directly. Discharge Diet: Diabetic Discharge Activity: Resume usual activity and Increase activity as tolerated Patient Instructions: Type 2 Diabetes, Urinary Tract Infection in Women (DC), Opioid Safety Activity Restrictions/Additional Instructions: Dose of the Lantus has been decreased to 35 units daily. Please check your fasting blood sugar daily at home and maintain a blood sugar diary. Your goal blood sugar is between 100-120. Follow-up with your primary care provider within next 2 weeks with a blood sugar diary for further adjustment of diabetes medication. Discharge Attestations Time Spent in Discharge Care*: greater than 30 min Specific Discharge Activities: educating patient, discussing with pcp/other providers, discussing with case management associate/social workers/dc planners, documenting/other paperwork and evaluating patient/reviewing data Status at Discharge: Cognitive status at discharge: cognitively intact, Behavioral status at discharge: cooperative, Functional status at discharge: uses cane/walker, Overall status at discharge: patient is progressing back to baseline Quality Metrics Clinical Quality Measures [ No reported AMI, CVA or VTE this stay] Coding Level of Care Code 05839 Total time (in minutes) for Discharge: 65 Diagnoses UTI (urinary tract infection) N39.0 Sepsis A41.9 Controlled type 2 diabetes mellitus with insulin therapy E11.9; Z79.4 Acquired hypothyroidism E03.9 History of deep venous thrombosis (DVT) of distal vein of right lower extremity Z86.718 On warfarin therapy Z79.01
--- NOTE | 2024-06-29 13:20 | ECG_ITS ---
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 Measurements Intervals [place] Rate: 84 P: 4 MO: 164 QRS: 19 QRSD: 90 T: 49 QT: 364 QTc: 433 Interpretive Statements SINUS RHYTHM Compared to ECG 06/29/2024 07:43:18 Myocardial infarct finding no longer present Electronically Signed On 07-02-2024 09:25:38 CDT by Eze Puri M.D. [email or web address] [id number]
[2024-06-29] MEDS: warfarin 5 mg Tablet PO (13:58)
== END 2024-06-29 16:15 | disposition home or self-care (01) | DRG 872 ==
LOC: ER 11:39 → ER IP 17:10 → MEDSURG 19:01
PROVIDERS: Student in an Organized Health Care Education/Training Program; Admitting Provider Student in an Organized Health Care Education/Training Program; Emergency Provider Family Medicine; PCP Family Medicine; Visit Provider Student in an Organized Health Care Education/Training Program
DX: A41.9 Sepsis, unspecified organism (principal); N39.0 Urinary tract infection, site not specified; E11.319 Type 2 diabetes mellitus with unspecified diabetic retinopathy without macular edema; K21.9 Gastro-esophageal reflux disease without esophagitis; E03.9 Hypothyroidism, unspecified; Z79.84 Long term (current) use of oral hypoglycemic drugs; Z79.899 Other long term (current) drug therapy; Z79.890 Hormone replacement therapy; Z79.01 Long term (current) use of anticoagulants; Z88.6 Allergy status to analgesic agent; Z88.1 Allergy status to other antibiotic agents; Z88.0 Allergy status to penicillin; Z88.9 Allergy status to unspecified drugs, medicaments and biological substances; Z79.4 Long term (current) use of insulin; Z86.718 Personal history of other venous thrombosis and embolism; Z88.2 Allergy status to sulfonamides; I95.1 Orthostatic hypotension; E11.649 Type 2 diabetes mellitus with hypoglycemia without coma
CPT/HCPCS: 36415; 36416; 36600; 70450; 71045; 71275; 80051; 80053; 81001; 82330; 82533; 82550; 82607; 82746; 82805; 82962; 83540; 83550; 83605; 83735; 84100; 84145; 84484; 85025; 85610; 87040; 87086; 93005; 93306; 94640; 94664; 94760; 96365; 96372; 97116; 97161; 99285; G0378; J0696; J0744; J1815; J2470; J7030; J7040; J9999

== ENCOUNTER → 2024-07-03 09:24 | Outpatient (BNVA) | payer MEDICARE, OTHER, SELFPAY | PROVIDERS: PCP Family Medicine; Visit Provider Family Medicine | DX: I95.1 Orthostatic hypotension (principal); E87.6 Hypokalemia; D50.9 Iron deficiency anemia, unspecified | CPT/HCPCS: 85025 ==

== ENCOUNTER → 2024-07-06 11:50 | Outpatient (BNVA) | payer MEDICARE, OTHER, SELFPAY | PROVIDERS: PCP Family Medicine; Visit Provider Family Medicine | DX: E87.6 Hypokalemia (principal); D50.9 Iron deficiency anemia, unspecified; I95.1 Orthostatic hypotension; Z79.4 Long term (current) use of insulin; E11.9 Type 2 diabetes mellitus without complications | CPT/HCPCS: 80048; 83540; 85025 ==

== ENCOUNTER 2024-08-28 09:35 | Outpatient (RCR) | payer MEDICARE, OTHER, SELFPAY | END 2024-09-27 23:59 | disposition home or self-care (01) | LOC: SPT 09:35 | PROVIDERS: PCP Family Medicine; Visit Provider Family Medicine | DX: M62.81 Muscle weakness (generalized) (principal); R26.9 Unspecified abnormalities of gait and mobility; R53.81 Other malaise | CPT/HCPCS: 97110; 97116; 97161 ==

== ENCOUNTER → 2024-09-03 08:36 | Outpatient (BNVA) | payer MEDICARE, OTHER, SELFPAY | PROVIDERS: PCP Family Medicine; Visit Provider Podiatrist Foot & Ankle Surgery | DX: E11.42 Type 2 diabetes mellitus with diabetic polyneuropathy (principal); L60.3 Nail dystrophy; E11.319 Type 2 diabetes mellitus with unspecified diabetic retinopathy without macular edema; Z79.01 Long term (current) use of anticoagulants; I73.9 Peripheral vascular disease, unspecified; E11.8 Type 2 diabetes mellitus with unspecified complications; Z86.718 Personal history of other venous thrombosis and embolism; M20.41 Other hammer toe(s) (acquired), right foot; M20.42 Other hammer toe(s) (acquired), left foot; Z79.4 Long term (current) use of insulin | CPT/HCPCS: 11721; 99213 ==

== ENCOUNTER 2024-10-04 06:00 | Outpatient (RCR) | payer MEDICARE, OTHER, SELFPAY | END 2024-10-28 23:59 | disposition home or self-care (01) | LOC: SPT 06:00 | PROVIDERS: PCP Family Medicine; Visit Provider Family Medicine | DX: R53.81 Other malaise (principal); R26.89 Other abnormalities of gait and mobility; R53.1 Weakness | CPT/HCPCS: 97110; 97116; 97164 ==

== ENCOUNTER 2024-10-29 05:30 | Outpatient (RCR) | payer MEDICARE, OTHER, SELFPAY | END 2024-11-12 09:20 | disposition home or self-care (01) | LOC: SPT 05:30 | PROVIDERS: PCP Family Medicine; Visit Provider Family Medicine | DX: M62.81 Muscle weakness (generalized) (principal); R26.9 Unspecified abnormalities of gait and mobility | CPT/HCPCS: 97110 ==

== ENCOUNTER → 2024-11-15 09:27 | Outpatient (BNVA) | payer MEDICARE, OTHER, SELFPAY | PROVIDERS: PCP Family Medicine; Visit Provider Family Medicine | DX: E11.9 Type 2 diabetes mellitus without complications (principal); Z79.4 Long term (current) use of insulin; E55.9 Vitamin D deficiency, unspecified | CPT/HCPCS: 82043; 82306; 83036 ==

== ENCOUNTER → 2024-12-04 08:44 | Outpatient (BNVA) | payer MEDICARE, OTHER, SELFPAY | PROVIDERS: PCP Family Medicine; Visit Provider Podiatrist Foot & Ankle Surgery | DX: I73.9 Peripheral vascular disease, unspecified (principal); L60.3 Nail dystrophy; E11.8 Type 2 diabetes mellitus with unspecified complications; Z86.718 Personal history of other venous thrombosis and embolism; Z79.01 Long term (current) use of anticoagulants; E11.42 Type 2 diabetes mellitus with diabetic polyneuropathy; M20.41 Other hammer toe(s) (acquired), right foot; M20.42 Other hammer toe(s) (acquired), left foot; Z79.4 Long term (current) use of insulin | CPT/HCPCS: 11721 ==

== ENCOUNTER 2024-12-27 09:13 | Outpatient (CLI) | payer MEDICARE, OTHER, SELFPAY ==
--- NOTE | 2024-12-27 09:20 | MM_ITS ---
WS: [id number] BILATERAL SCREENING DIGITAL TOMOSYNTHESIS MAMMOGRAM WITH CAD HISTORY: screening COMPARISON: 12/27/2023, 12/15/2022, 06/18/2021 Bilateral CC and MLO views with tomosynthesis and synthetic mammography submitted. Computer aided detection analyzed. Breast composition: There are scattered areas of fibroglandular density. No suspicious masses, microcalcifications or architectural distortion. Extensive arterial calcifications which have increased over the last several years. No suspicious mass or grouping of calcifications. MM/MM scr BI tomosynthesis [id number] IMPRESSION: BI-RADS: 2 - Benign. FOLLOW UP: 1 Year Follow-up
== END 2024-12-27 09:14 | disposition home or self-care (01) ==
LOC: RAD 09:14
PROVIDERS: PCP Family Medicine; Visit Provider Family Medicine
DX: Z12.31 Encounter for screening mammogram for malignant neoplasm of breast (principal); R92.323 Mammographic fibroglandular density, bilateral breasts; R92.1 Mammographic calcification found on diagnostic imaging of breast
CPT/HCPCS: 77063; 77067